=== PATIENT | female | born 1975 | race Caucasian/White ===

== ENCOUNTER 2018-07-08 10:13 | Inpatient (IN) | payer BC ==
[~2018-07-08] VITALS: Ht 157.5 cm; Wt 52.3 kg
[2018-07-08] MEDS ORDERED: METHYLPREDNISOLONE SOD SUCC 125 MG/2ML VIAL IV ONE ×2 (10:45→11:00)
[2018-07-08] MEDS ORDERED: ALBUTEROL/IPRATROPIUM 3 ML NEB NEB ONE (10:45)
[2018-07-08] MEDS ORDERED: DEXAMETHASONE SOD PHOS 10 MG/1 ML VIAL ONE (10:53)
[2018-07-08] MEDS ORDERED: MAGNESIUM SULFATE 2GM/50ML 50 ML IV ONE (11:00)
[2018-07-08] MEDS: ALBUTEROL/IPRATROPIUM 3 ML NEB NEB SCH ×4 (11:00→22:45)
[2018-07-08] MEDS ORDERED: DEXAMETHASONE SOD PHOS 10 MG/1 ML VIAL IV ONE (11:00)
--- NOTE | 2018-07-08 11:00 | NUR ---
RT to bedside initiating Bipap at this time. Pt states she has had to use bipap before & tolerates well. Educated regarding plan of care. Understanding verbalized. Will continue to monitor.
[2018-07-08 11:27] LABS: BASOPHILS % 0.2 % (0.0-1.0); EOSINOPHILS % 0.3 % (0.0-6.0); HEMATOCRIT 45.6 % (34.2-44.1); HEMOGLOBIN 15.6 g/dL (12.0-16.0); LYMPHOCYTES # (AUTO) 0.9 (1.0-3.2); LYMPHOCYTES % 7.3 % (18.0-39.1); MEAN CORPUSCULAR HEMOGLOBIN 31.1 pg (28-32); MEAN CORPUSCULAR HGB CONC 34.2 g/dL (31-35); MEAN CORPUSCULAR VOLUME 90.8 fL (81-99); MONOCYTES # (AUTO) 1.1 (0.2-0.8); MONOCYTES % 8.9 % (4.4-11.3); NEUTROPHILS # (AUTO) 10.1 (2.1-6.9); PLATELET COUNT 278 x10e3/uL (140-360); RED BLOOD COUNT 5.02 x10e6/uL (3.6-5.1); RED CELL DISTRIBUTION WIDTH 11.9 % (11.7-14.4)
[2018-07-08 11:50] LABS: ALANINE AMINOTRANSFERASE 10 IU/L (0-55); ALBUMIN 3.5 g/dL (3.5-5.0); ALBUMIN/GLOBULIN RATIO 0.9 (0.8-2.0); ALKALINE PHOSPHATASE 66 IU/L (40-150); ANION GAP 13.6 mmol/L (8-16); BLOOD UREA NITROGEN 6 mg/dL (7-26); BUN/CREATININE RATIO 9 (6-25); CALCIUM 9.5 mg/dL (8.4-10.2); CARBON DIOXIDE 24 mmol/L (22-29); CHLORIDE 101 mmol/L (98-107); CREATININE, SERUM 0.64 mg/dL (0.57-1.11); EST GLOMERULAR FILTRATION RATE > 60 ML/MIN (60-); GLUCOSE 77 mg/dL (74-118); MAGNESIUM 2.6 MG/DL (1.3-2.1); POTASSIUM 3.6 mmol/L (3.5-5.1); SODIUM 135 mmol/L (136-145)
--- NOTE | 2018-07-08 12:00 | NUR ---
Bipap remains in place, tolerating well. Will continue to monitor.
--- NOTE | 2018-07-08 13:15 | NUR ---
BIPAP REMOVED AT THIS TIME, PLACED ON 2L N/C AT THIS TIME, TOLERATING WELL BREATHING EVEN/UNLABORED.
--- NOTE | 2018-07-08 13:55 | Diagnostic Imaging Report ---
EXAM: CHEST SINGLE (PORTABLE), AP Portable DATE: 07/08/2018 Time stamp on exam: 11:49 AM INDICATION: Asthma, cough with shortness of breath COMPARISON: None FINDINGS: LINES/TUBES: None LUNGS: No consolidations or edema. Bibasilar opacities likely is secondary to atelectasis. PLEURA: No effusions or pneumothorax. HEART AND MEDIASTINUM: Normal size and contour. BONES AND SOFT TISSUES: No acute findings. IMPRESSION: Bibasilar opacities. Signed by: Dr. Delmer Durand DO on 07/08/2018 1:52 PM
[2018-07-08] MEDS: METHYLPREDNISOLONE SOD SUCC 40 MG/ML VIAL 1ML IV SCH (18:00)
[2018-07-08 23:45] VITALS: BP 121/80
--- NOTE | 2018-07-08 23:45 | NUR ---
pt received from er via bed. no ss of distress noted upon admission. pt made comfortable and oriented to rm. tele placed on pt per orders. 02 nc noted. no co pain at time. hx obtained. will cont to follow poc. call jean baptiste within reach.
[2018-07-09] VITALS (10 sets, daily range): BP systolic 114–131; BP diastolic 66–80
[2018-07-09] MEDS ORDERED: LEVAQUIN500 MG PO (00:52)
[2018-07-09] MEDS ORDERED: XOPENEX1.25 MG/3 NEB (00:52)
[2018-07-09] MEDS ORDERED: ACETYLCYST200 MG/1 M NEB (00:52)
[2018-07-09] MEDS ORDERED: SINGULAIR10 MG PO (00:52)
[2018-07-09] MEDS ORDERED: PREDNISONE20 MG PO (00:52)
[2018-07-09] MEDS ORDERED: flonase INH (00:52)
[2018-07-09] MEDS ORDERED: SPIRIVA18 MCG INH (00:52)
[2018-07-09] MEDS: ALBUTEROL/IPRATROPIUM 3 ML NEB NEB SCH ×6 (03:55→23:30)
--- NOTE | 2018-07-09 04:08 | NUR ---
pt resting. no ss of distress noted. call jean baptiste within reach.
[2018-07-09] MEDS ORDERED: ADVAIR 250-501 EACH INH (04:22)
[2018-07-09] MEDS ORDERED: CEFEPIME 1GM/NS 0.9% 50 ML 50 ML IV ONE (05:10)
[2018-07-09 05:14] LABS: BASOPHILS % 0.1 % (0.0-1.0); HEMATOCRIT 40.8 % (34.2-44.1); HEMOGLOBIN 13.9 g/dL (12.0-16.0); LYMPHOCYTES # (AUTO) 0.4 (1.0-3.2); LYMPHOCYTES % 4.1 % (18.0-39.1); MEAN CORPUSCULAR HEMOGLOBIN 30.6 pg (28-32); MEAN CORPUSCULAR HGB CONC 34.1 g/dL (31-35); MEAN CORPUSCULAR VOLUME 89.9 fL (81-99); MONOCYTES # (AUTO) 0.3 (0.2-0.8); MONOCYTES % 2.9 % (4.4-11.3); NEUTROPHILS # (AUTO) 8.8 (2.1-6.9); NEUTROPHILS % 92.5 % (38.7-80.0); PLATELET COUNT 323 x10e3/uL (140-360); RED BLOOD COUNT 4.54 x10e6/uL (3.6-5.1)
[2018-07-09] MEDS: METHYLPREDNISOLONE SOD SUCC 40 MG/ML VIAL 1ML IV SCH ×5 (05:21→23:42)
[2018-07-09 05:39] LABS: ANION GAP 15.2 mmol/L (8-16); BLOOD UREA NITROGEN 12 mg/dL (7-26); BUN/CREATININE RATIO 19 (6-25); CARBON DIOXIDE 22 mmol/L (22-29); CHLORIDE 104 mmol/L (98-107); CREATININE, SERUM 0.63 mg/dL (0.57-1.11); EST GLOMERULAR FILTRATION RATE > 60 ML/MIN (60-); GLUCOSE 175 mg/dL (74-118); MAGNESIUM 2.6 MG/DL (1.3-2.1); POTASSIUM 3.2 mmol/L (3.5-5.1); SODIUM 138 mmol/L (136-145)
[2018-07-09] MEDS ORDERED: CEFEPIME HCL 1 GM VIAL IV SCH (06:00)
--- NOTE | 2018-07-09 06:19 | NUR ---
spoke to dr nicholson in regards to new consult. no new orders at time. will notify oncoming nurse.
[2018-07-09] MEDS ORDERED: POTASSIUM CHLORIDE 20 MEQ TAB CR PO STA (07:32)
--- NOTE | 2018-07-09 07:36 | NUR ---
pt resting in bed, no c/o pain or s/s distress. MD notified of labs. will continue to monitor.
[2018-07-09] MEDS: MONTELUKAST SODIUM 10 MG TAB PO SCH (08:06)
[2018-07-09 08:16] LABS: LYMPHOCYTES % (MANUAL) 4 % (19-48); MONOCYTES % (MANUAL) 1 % (3.4-9.0); NEUTROPHILS % (MANUAL) 95 % (40-74)
[2018-07-09] MEDS ORDERED: ACETYLCYSTEINE 20% INHAL SOLN 30 ML VIAL INH SCH (09:00)
[2018-07-09] MEDS: AZITHROMYCIN 250 MG TAB PO SCH (09:26)
[2018-07-09] MEDS: TIOTROPIUM 18 MCG INH POWDER INH SCH (11:03)
[2018-07-09] MEDS: SALMETEROL/FLUTICASONE 250/50 INH SCH ×2 (11:03→20:05)
[2018-07-09] MEDS: CEFEPIME 1GM/NS 0.9% 50 ML 50 ML IV SCH ×2 (14:23→21:32)
--- NOTE | 2018-07-09 14:34 | NUR ---
EDUCATED ABOUT IMM, SIGNED, FILED IN CHART, WITH COPY LEFT WITH FAMILY AT BEDSIDE.
--- NOTE | 2018-07-09 17:12 | NUR ---
CASE MANAGEMENT INITIAL ASSESSMENT Primary Care Provider to bedside to discuss plan of care with patient/family. CM/SW role and care transitions discussed. Anticipated discharge plan discussed along with duration of care. CM/SW discussed patients right to make decisions in care. CM/SW work hours given. Patient lives: WITH Admit/Transfer: ER Hospital/ER visits since last admit:0 POA/Emergency contact: DINO BARKER [phone] Current/Previous Home Health: NONE PCP/Follow-up Care: DR MATI ROSEN Current/Previous DME: BIPAP, CPT VEST Medications (referring to index hospitalization or the first time you were in the hospital) a. Were changes made in your medications when you were in the hospital on [date of index hospitalization]? N/A Note: If no or not sure, please skip to question d b. Did you understand the changes? Yes No Explain: c. Were you able to obtain your new medications right away? Yes No n/a SNF only Explain: d. Were you able to take your medications like the doctor wanted you to? TAKING ASTHMA MEDS PRESCRIBED BY PCP e. Did the hospital give you an accurate, easy to understand list of medications when you left? Scale of 1-10 how comfortable does patient feel with disease management in outpatient settin Other Services: NONE Employment Status: WORKS [employer]AN[employer] Areas of Concerns: ASTHMA MGMT AT HOME Referral Needs: TO BE DETERMINED Education Needs: TO BE DETERMINED IMM/TIWARI given and signed (if applicable): N/A Goal for discharge:TO GO HOME, GO BACK TO WORK AND BE ABLE TO MANAGE MY ASTHMA CM/SW left business card at the bedside with contact information. Name and number was also written on the patients whiteboard. Patient verbalized understanding of discussion. CM will follow-up with ongoing discharge and transition of care needs.
--- NOTE | 2018-07-09 18:30 | Consultation ---
DATE OF CONSULTATION: 07/09/2018 Pulmonary Consultation HISTORY OF PRESENT ILLNESS: The patient was last seen for over 10 years ago. History of lifelong childhood asthma, history of IgA deficiency. Out of hospital for last five years. Current illness started with hoarseness and then progressive wheezing, cough productive of thick tenacious sputum. ALLERGIES: NO KNOWN ALLERGIES. MEDICATIONS: Include Singulair, Advair, Mucomyst nebulized, prednisone for emergencies 40 mg, Levaquin over the last two days, Nasacort, and Xopenex. She also uses a vest. PAST SURGICAL HISTORY: She has had lumpectomy. No other operations. SOCIAL HISTORY: She works for an manufacturing production technician. Nonsmoker. No alcohol use. FAMILY HISTORY: Noncontributory. PHYSICAL EXAMINATION: GENERAL: Frail white female, in no acute distress, looking her stated age. VITAL SIGNS: Temperature 98.7, pulse 86, respirations 20, blood pressure 120/75. HEAD: Normocephalic, atraumatic. EYES: Extraocular movements are intact. LUNGS: Wheezing in all lung murphy. HEART: Regular rhythm. ABDOMEN: Nontender. EXTREMITIES: Nonedematous. DIAGNOSTIC STUDIES: Chest x-ray reveals hyperinflated lung murphy, vague lower lobe infiltrate. ASSESSMENT AND PLAN: She is currently on cefepime. We will cover for atypical infections. Continue chest physiotherapy. Check IgE levels. There is no evidence of eosinophils. Taper steroids as tolerated. Thank you for this kind referral. MD COLLEEN Alberto/ALLA /[id number]
--- NOTE | 2018-07-09 19:50 | NUR ---
Patient resting on her bed with continuing on 2lters oxygen via nasal canula.No C/O pain..Respiration even and unlabored. at the bedside. Bed in lower position,locked. Call jean baptiste within reach. Will continue to monitor.
[2018-07-09] MEDS: HEPARIN SOD (PORCINE) 5,000 UNIT/ML VIAL SC SCH (20:47)
[2018-07-10] VITALS (7 sets, daily range): BP systolic 97–127; BP diastolic 64–82
[2018-07-10] MEDS: ALBUTEROL/IPRATROPIUM 3 ML NEB NEB SCH ×6 (03:00→23:55)
[2018-07-10] MEDS: CEFEPIME 1GM/NS 0.9% 50 ML 50 ML IV SCH ×3 (05:22→21:47)
[2018-07-10] MEDS: METHYLPREDNISOLONE SOD SUCC 40 MG/ML VIAL 1ML IV SCH ×3 (05:22→17:59)
--- NOTE | 2018-07-10 07:03 | NUR ---
Report given to oncoming nurse,walking round done.
--- NOTE | 2018-07-10 07:16 | NUR ---
pt resting in bed, returned from CT. no c/o pain or s/s distress. will continue to monitor.
[2018-07-10] MEDS: SALMETEROL/FLUTICASONE 250/50 INH SCH ×2 (07:35→18:45)
[2018-07-10] MEDS: TIOTROPIUM 18 MCG INH POWDER INH SCH (07:35)
--- NOTE | 2018-07-10 07:44 | Diagnostic Imaging Report ---
CT CHEST HI-RES History: Asthma, cough for 2 weeks ^HRCT ^[id number] ^[id number] Technique: Axial noncontrast images of the lungs are obtained from the apices to the bases in both suspended inspiration and expiration by using 1.25 mm collimation and 10 mm intervals Additional prone inspiration images were obtained. A sharp-edge reconstruction algorithm was used and the images reviewed with lung windows. No intravenous contrast was administered. RADIATION DOSE: Total DLP: 530.03 mGy*cm Estimated effective dose: (DLP x 0.015 x size factor) mSv CTDIvol has been reviewed. It is below the limits set by the Radiation Protocol Committee (RPC). Comparison: Chest x-ray 07/08/2018. LINES/ TUBES: None. Thyroid/base of neck: Normal in size without mass in the visualized parenchyma. Lymph nodes: No mediastinal, hilar or axillary lymphadenopathy. LUNGS AND AIRWAYS: Right lung: Patchy groundglass opacities in the all lobes, predominantly the lower lobe. No evidence of honeycombing or subpleural bands. No evidence of centrilobular or perilymphatic nodules. No interlobular septal thickening. No evidence of air trapping. Calcified nodule in the lateral lower lobe measures 2 mm. Left lung: Patchy groundglass opacities in the medial lingula and lower lobe. No honeycombing or subpleural bands. No evidence of centrilobular perilymphatic nodules. No evidence of air trapping. No interlobular septal thickening. Airways: No bronchiectasis or significant bronchial wall thickening. No intraluminal filling defects. PLEURA: Mild biapical pleural-parenchymal thickening. No pleural effusion or pleural based mass. HEART AND MEDIASTINUM: The heart is normal in size. There is no pericardial effusion. The thoracic aorta and pulmonary arteries are unremarkable. The esophagus is collapsed. UPPER ABDOMEN: Unremarkable. BONES: The visualized bony thorax is within normal limits. SOFT TISSUES: Unremarkable. IMPRESSION: 1. Multifocal groundglass opacities in each lung, lower lobe predominant, suggestive of an infectious/inflammatory process, including hypersensitivity pneumonia. Recommend follow-up with conventional CT in 3-4 months to document interval change/resolution. 2. No findings to suggest interstitial lung disease. 3. No lymphadenopathy on this unenhanced examination. Signed by: Dr. Idalmis Ordoñez MD on 07/10/2018 7:40 AM
[2018-07-10] MEDS: AZITHROMYCIN 250 MG TAB PO SCH (08:59)
[2018-07-10] MEDS: HEPARIN SOD (PORCINE) 5,000 UNIT/ML VIAL SC SCH ×2 (08:59→21:10)
[2018-07-10] MEDS: MONTELUKAST SODIUM 10 MG TAB PO SCH (08:59)
--- NOTE | 2018-07-10 11:04 | Progress Note ---
DATE: 07/10/2018 SUBJECTIVE: The patient is here for asthma exacerbation. The patient is currently on Mucomyst, albuterol and Atrovent treatments, azithromycin, and Solu-Medrol. The patient is currently feeling somewhat better. The patient has been ambulating with tachycardia and has also no orthopnea, no PND. Positive for wheezing and also positive for loss of voice. OBJECTIVE: VITAL SIGNS: Temperature is afebrile at 98.4, T-max 98.4, pulse of 83, respiration of 19, blood pressure is 108/74, and pulse oximetry of 99%. She is on 2 L of oxygen, has been on BiPAP and is scheduled for a CT scan today. CVS: S1, S2, tachycardic. ABDOMEN: Nontender, nondistended. LUNGS: Positive for bilateral wheezes. EXTREMITIES: No clubbing, no cyanosis, and no edema. LABORATORY VALUES: From 07/09/2018 shows white count of 9.5, slight left shift. Chemistry shows sodium of 138, potassium of 3.2, glucose was 175 with magnesium of 2.6. The patient's IgE panel is pending at this time. Microbiology, Gram stain is negative for sputum culture. ASSESSMENT: 1. Acute exacerbation of asthma with history of IgA deficiency. Plan is to continue with antibiotics for atypical coverage. Chest physiotherapy has been done. She is on Solu-Medrol, which has to be tapered. 2. Leukocytosis. This has resolved. 3. The patient is tachycardic. We will keep monitoring her in the telemetry unit. Plan is to continue all current medication and also Dr. Richardson is on consult at this time. DISPOSITION: Continue to monitor the patient. The patient has very slow progress. MD LEONOR Hector/ERMAL /[id number]
[2018-07-10] MEDS: ACETYLCYSTEINE 200 MG/ML 4ML VIAL INH SCH ×3 (14:40→23:55)
[2018-07-11] VITALS (8 sets, daily range): BP systolic 108–140; BP diastolic 61–86
[2018-07-11] MEDS: METHYLPREDNISOLONE SOD SUCC 40 MG/ML VIAL 1ML IV SCH ×3 (00:07→16:32)
[2018-07-11] MEDS: ALBUTEROL/IPRATROPIUM 3 ML NEB NEB SCH ×6 (03:05→23:30)
[2018-07-11] MEDS: CEFEPIME 1GM/NS 0.9% 50 ML 50 ML IV SCH ×3 (05:40→21:28)
--- NOTE | 2018-07-11 07:12 | NUR ---
Report given to oncoming nurse,walking round done.
[2018-07-11] MEDS: ACETYLCYSTEINE 200 MG/ML 4ML VIAL INH SCH ×3 (08:10→19:30)
[2018-07-11] MEDS: SALMETEROL/FLUTICASONE 250/50 INH SCH ×2 (08:20→19:30)
[2018-07-11] MEDS: TIOTROPIUM 18 MCG INH POWDER INH SCH (08:20)
[2018-07-11] MEDS: MONTELUKAST SODIUM 10 MG TAB PO SCH (09:17)
[2018-07-11] MEDS: AZITHROMYCIN 250 MG TAB PO SCH (09:17)
[2018-07-11] MEDS: HEPARIN SOD (PORCINE) 5,000 UNIT/ML VIAL SC SCH ×2 (09:24→20:38)
[2018-07-11] MEDS ORDERED: METHYLPREDNISOLONE SOD SUCC 40 MG/ML VIAL 1ML IV SCH (14:00)
[2018-07-11] MEDS ORDERED: POTASSIUM CHLORIDE 20 MEQ TAB CR PO NR ×2 (18:45→20:00)
--- NOTE | 2018-07-11 19:05 | NUR ---
Report received from AM RN Audrey.Patient resting on her bed. Denied pain and SOB/labored noted.Spo2 maintained 100% with 2liters oxygen via nasal canula.patient friend at the bedside. Called RT for her breathing treatment. Will continue to monitor.
[2018-07-11] MEDS ORDERED: SODIUM CHLORIDE 0.9% 250ML 250 ML ONE (20:44)
[2018-07-12] VITALS (8 sets, daily range): BP systolic 121–149; BP diastolic 70–91
[2018-07-12] MEDS: ACETYLCYSTEINE 200 MG/ML 4ML VIAL INH SCH ×4 (01:00→19:40)
[2018-07-12] MEDS: ALBUTEROL/IPRATROPIUM 3 ML NEB NEB SCH ×6 (03:15→23:05)
[2018-07-12] MEDS: CEFEPIME 1GM/NS 0.9% 50 ML 50 ML IV SCH ×3 (05:24→21:22)
--- NOTE | 2018-07-12 07:07 | NUR ---
Report given to oncoming nurse,walking round done.
[2018-07-12] MEDS: SALMETEROL/FLUTICASONE 250/50 INH SCH ×2 (08:29→19:40)
[2018-07-12] MEDS: TIOTROPIUM 18 MCG INH POWDER INH SCH (08:29)
[2018-07-12] MEDS: AZITHROMYCIN 250 MG TAB PO SCH (09:18)
[2018-07-12] MEDS: METHYLPREDNISOLONE SOD SUCC 40 MG/ML VIAL 1ML IV SCH ×2 (09:18→16:27)
[2018-07-12] MEDS: MONTELUKAST SODIUM 10 MG TAB PO SCH (09:18)
[2018-07-12] MEDS: HEPARIN SOD (PORCINE) 5,000 UNIT/ML VIAL SC SCH ×2 (09:32→21:11)
[2018-07-12] MEDS ORDERED: SODIUM CHLORIDE 0.9% 250ML 250 ML ONE (09:59)
[2018-07-13] VITALS (8 sets, daily range): BP systolic 106–164; BP diastolic 49–95
[2018-07-13] MEDS: ALBUTEROL/IPRATROPIUM 3 ML NEB NEB SCH ×6 (02:00→23:00)
[2018-07-13] MEDS: ACETYLCYSTEINE 200 MG/ML 4ML VIAL INH SCH ×4 (02:00→19:45)
[2018-07-13] MEDS: CEFEPIME 1GM/NS 0.9% 50 ML 50 ML IV SCH ×3 (05:34→21:54)
[2018-07-13] MEDS: TIOTROPIUM 18 MCG INH POWDER INH SCH (08:10)
[2018-07-13] MEDS: SALMETEROL/FLUTICASONE 250/50 INH SCH ×2 (08:10→19:45)
[2018-07-13] MEDS: METHYLPREDNISOLONE SOD SUCC 40 MG/ML VIAL 1ML IV SCH ×2 (09:32→17:41)
[2018-07-13] MEDS: AZITHROMYCIN 250 MG TAB PO SCH (09:32)
[2018-07-13] MEDS: MONTELUKAST SODIUM 10 MG TAB PO SCH (09:32)
[2018-07-13] MEDS: HEPARIN SOD (PORCINE) 5,000 UNIT/ML VIAL SC SCH ×2 (09:33→21:47)
--- NOTE | 2018-07-13 11:48 | NUR ---
ATTEMPTED PFT BEDSIDE BUT PT COULD NOT JOAO FULL TEST
--- NOTE | 2018-07-13 12:57 | Diagnostic Imaging Report ---
EXAMINATION: CHEST SINGLE (PORTABLE) INDICATION: Shortness of breath. COMPARISON: CT chest 07/10/2018 and chest radiograph 07/08/2018. FINDINGS: TUBES and LINES: None. LUNGS: Mild patchy bibasilar opacities. No new consolidation. No evidence of pulmonary edema. PLEURA: No pleural effusion or pneumothorax. HEART AND MEDIASTINUM: The cardiomediastinal silhouette is unremarkable. BONES AND SOFT TISSUES: No acute osseous lesion. Soft tissues are unremarkable. UPPER ABDOMEN: No free air under the diaphragm. IMPRESSION: Mild patchy bibasilar opacities, better characterized as infectious/inflammatory process on CT chest from 07/10/2018. No new consolidation. No evidence of pulmonary edema. Signed by: Dr. Fanta Howard MD on 07/13/2018 12:53 PM
[2018-07-14] VITALS (8 sets, daily range): BP systolic 112–151; BP diastolic 83–95
--- NOTE | 2018-07-14 00:08 | Pulmonary Function Test ---
DATE OF STUDY: 07/13/2018 REFERRING PHYSICIAN: NAME OF STUDY: Spirometry. FINDINGS: The patient's study was questionable because of severe dyspnea, only one maneuver was performed. However, the forced vital capacity was 1.16, 33% of predicted. FEV1 1.09 L, 38%. FEV1/FVC ratio 94%. [id number] of 55%. Peak expiratory flow 243. Severe restrictive pattern in the patient with known asthma. MD COLLEEN Alberto/MODL /[id number]
[2018-07-14] MEDS: ACETYLCYSTEINE 200 MG/ML 4ML VIAL INH SCH ×4 (02:09→19:30)
[2018-07-14] MEDS: ALBUTEROL/IPRATROPIUM 3 ML NEB NEB SCH ×6 (02:09→23:30)
[2018-07-14] MEDS: CEFEPIME 1GM/NS 0.9% 50 ML 50 ML IV SCH ×3 (05:38→21:49)
[2018-07-14] MEDS ORDERED: FUROSEMIDE INJ 10 MG/ML 2 ML VIAL IV ONE (06:00)
--- NOTE | 2018-07-14 07:15 | NUR ---
RN performed comprehensive assessment on patient. Patient is on BiPAP and will continue to monitor or airway/breathing status. Alert/oriented x3 with the vital signs WNL. The patient reported no pain.
[2018-07-14] MEDS: TIOTROPIUM 18 MCG INH POWDER INH SCH (07:25)
[2018-07-14] MEDS: SALMETEROL/FLUTICASONE 250/50 INH SCH ×2 (07:25→19:30)
[2018-07-14 07:58] LABS: BASOPHILS # (AUTO) 0.1 (0.0-0.1); BASOPHILS % 0.6 % (0.0-1.0); HEMOGLOBIN 16.7 g/dL (12.0-16.0); LYMPHOCYTES # (AUTO) 2.1 (1.0-3.2); LYMPHOCYTES % 13.7 % (18.0-39.1); MEAN CORPUSCULAR HEMOGLOBIN 30.7 pg (28-32); MEAN CORPUSCULAR HGB CONC 34.1 g/dL (31-35); MEAN CORPUSCULAR VOLUME 90.1 fL (81-99); MONOCYTES # (AUTO) 1.2 (0.2-0.8); MONOCYTES % 7.7 % (4.4-11.3); NEUTROPHILS # (AUTO) 11.1 (2.1-6.9); NEUTROPHILS % 73.9 % (38.7-80.0); PLATELET COUNT 434 x10e3/uL (140-360); RED BLOOD COUNT 5.44 x10e6/uL (3.6-5.1); RED CELL DISTRIBUTION WIDTH 12.4 % (11.7-14.4)
[2018-07-14 08:42] LABS: ANION GAP 14.5 mmol/L (8-16); BLOOD UREA NITROGEN 17 mg/dL (7-26); BUN/CREATININE RATIO 24 (6-25); CALCIUM 9.3 mg/dL (8.4-10.2); CARBON DIOXIDE 25 mmol/L (22-29); CHLORIDE 100 mmol/L (98-107); EST GLOMERULAR FILTRATION RATE > 60 ML/MIN (60-); GLUCOSE 79 mg/dL (74-118); POTASSIUM 4.5 mmol/L (3.5-5.1); SODIUM 135 mmol/L (136-145)
[2018-07-14] MEDS: AZITHROMYCIN 250 MG TAB PO SCH (08:52)
[2018-07-14] MEDS: METHYLPREDNISOLONE SOD SUCC 40 MG/ML VIAL 1ML IV SCH ×2 (08:52→16:29)
[2018-07-14] MEDS: MONTELUKAST SODIUM 10 MG TAB PO SCH (08:52)
[2018-07-14] MEDS: HEPARIN SOD (PORCINE) 5,000 UNIT/ML VIAL SC SCH ×2 (08:54→21:54)
--- NOTE | 2018-07-14 10:42 | NUR ---
EDUCATED ABOUT IMM, SIGNED, FILED IN CHART, WITH COPY LEFT WITH FAMILY AT BEDSIDE.
[2018-07-14 10:52] LABS: LYMPHOCYTES % (MANUAL) 21 % (19-48); MONOCYTES % (MANUAL) 7 % (3.4-9.0); MYELOCYTES % (MANUAL) 1 % (0-0); NEUTROPHILS % (MANUAL) 71 % (40-74)
[2018-07-14 10:53] LABS: ANISOCYTOSIS SLIGHT; PLATELET ESTIMATE ADEQUATE; PLATELET MORPHOLOGY COMMENT NORMAL; RBC MORPHOLOGY COMMENT NORMAL
--- NOTE | 2018-07-14 18:30 | NUR ---
Nutrition Intervention Note RD Recommendation(s) for Physician: -Continue cardiac diet as ordered -Rec Ensure Clear BID to increase protein-calorie intake Plan of Care: RD following, monitoring for tolerance and adequacy, ONS rec Nutrition reason for involvement: LOS RD Assessment 07/14 Chart reviewed. 43yo F, who was admitted for asthma. Visited pt in the room. Pt reported fair appetite with ~25% of meal intake. Pt stated I am not a big eater when I am short of breathe. Family has been bringing foods from home. No GI complains noted. Pt denied any chewing or swallowing difficulty. No recent weight loss reported with UBW ~100-110lb. RD rec ONS to increase protein-calorie intake; pt was willing to try. Will continue to monitor and follow. Principal Problems/Diagnoses: Acute exacerbation of asthma with history of IgA deficiency PMH: lifelong childhood asthma, IgA deficiency GI: abdomen flat, LBM 07/13 Skin: no pressure wound noted Labs: (07/14) Na 135 L Meds: Solu-medrol, abx, heparin Ht: 62in Wt: 112.04lb BMI: 20.5kg/m2 IBW: 110lb Malnutrition Evaluation (07/14) The patient does not meet criteria for a specified degree of malnutrition at this time. Will re-evaluate at follow-up as appropriate. Nutrition Prescription (Diet Order): cardiac diet Estimated Nutritional Needs: Calories: 1257 1530kcal(25-30kcal/kg/d) Weight used: current BW Protein: 51 77g (1-1.5g/kg/d) Weight used: current BW Diet Adequacy: Not meeting calorie needs, Not meeting protein needs Diet Education Needs Assessment: Diet education not indicated; patient on regular diet. Nutrition Care Level: low Nutrition Diagnosis: Inadequate oral intake related to SOB as evidenced by pt only ate ~25% of her meals. Goal: Patient will meet 75-100% of estimated needs by follow up Progress: N/A Interventions: Mineral-modified diet, Commercial beverage Monitoring/Evaluation: Total energy intake, Total protein intake, Modified diet, Liquid supplement, Weight change Signed: Beth Bowers MS, RD, LD
--- NOTE | 2018-07-14 19:06 | NUR ---
ROUNDS DONE, PATIENT RESTING IN BED, FAMILY/FRIEND AT THE BEDSIDE, 02 PER NC REMAIN INTACT, WILL CONTINUE TO MONITOR. CALL LIGHT IN REACH.
--- NOTE | 2018-07-14 19:19 | NUR ---
FAMILY BROUGHT HER SOME OUTSIDE FOOD AND PATIENT IS EATING WITHOUT ANY PROBLEMS.
--- NOTE | 2018-07-14 23:18 | NUR ---
PATIENT RESTING IN BED, AT THE BEDSIDE, REMAIN ON O2, NO COMPLAINTS OF PAIN, CALL LIGHT REMAIN IN REACH. WILL CONTINUE TO MONITOR.
[2018-07-15] VITALS (7 sets, daily range): BP systolic 125–148; BP diastolic 80–97
[2018-07-15] MEDS: ACETYLCYSTEINE 200 MG/ML 4ML VIAL INH SCH ×4 (02:30→20:15)
[2018-07-15] MEDS: ALBUTEROL/IPRATROPIUM 3 ML NEB NEB SCH ×6 (02:30→23:50)
[2018-07-15] MEDS: CEFEPIME 1GM/NS 0.9% 50 ML 50 ML IV SCH ×3 (05:47→21:31)
[2018-07-15] MEDS ORDERED: PANTOPRAZOLE SOD 40 MG TABEC PO SCH (07:30)
[2018-07-15] MEDS: METHYLPREDNISOLONE SOD SUCC 40 MG/ML VIAL 1ML IV SCH ×2 (09:09→17:44)
[2018-07-15] MEDS: AZITHROMYCIN 250 MG TAB PO SCH (09:16)
[2018-07-15] MEDS: MONTELUKAST SODIUM 10 MG TAB PO SCH (09:16)
[2018-07-15] MEDS: HEPARIN SOD (PORCINE) 5,000 UNIT/ML VIAL SC SCH ×2 (09:20→21:31)
[2018-07-15] MEDS: SALMETEROL/FLUTICASONE 250/50 INH SCH ×2 (11:32→20:15)
[2018-07-15] MEDS: TIOTROPIUM 18 MCG INH POWDER INH SCH (11:32)
--- NOTE | 2018-07-15 15:33 | NUR ---
SPOKE WITH DR MENDOSA AND DR ROSEN PT IS MAXED OUT ON TREATMENT FOR ASTHMA PER DR MENDOSA AND IS MAKING MINIMAL IMPROVEMENT PT AMBULATED IN ROOM TODAY AND BECAME VERY SHORT OF BREATH REQUIRING BIPAP ORDERS FOR LTAC PT CURRENTLY ON BIPAP WITH FAMILY AT BEDSIDE WILL DISCUSS LTAC WITH PT WHEN HER BREATHING IMPROVES
[2018-07-16] VITALS (8 sets, daily range): BP systolic 108–163; BP diastolic 66–93
[2018-07-16] MEDS: ALBUTEROL/IPRATROPIUM 3 ML NEB NEB SCH ×6 (03:30→23:07)
[2018-07-16] MEDS: ACETYLCYSTEINE 200 MG/ML 4ML VIAL INH SCH ×4 (03:30→19:19)
[2018-07-16] MEDS: CEFEPIME 1GM/NS 0.9% 50 ML 50 ML IV SCH ×3 (06:01→22:00)
[2018-07-16 06:43] LABS: BASOPHILS # (AUTO) 0.1 (0.0-0.1); BASOPHILS % 0.4 % (0.0-1.0); HEMATOCRIT 41.8 % (34.2-44.1); HEMOGLOBIN 13.9 g/dL (12.0-16.0); LYMPHOCYTES % 9.5 % (18.0-39.1); MEAN CORPUSCULAR HEMOGLOBIN 30.4 pg (28-32); MEAN CORPUSCULAR HGB CONC 33.3 g/dL (31-35); MEAN CORPUSCULAR VOLUME 91.5 fL (81-99); MONOCYTES # (AUTO) 1.2 (0.2-0.8); MONOCYTES % 5.7 % (4.4-11.3); NEUTROPHILS % 81.3 % (38.7-80.0); PLATELET COUNT 375 x10e3/uL (140-360); RED BLOOD COUNT 4.57 x10e6/uL (3.6-5.1); RED CELL DISTRIBUTION WIDTH 12.5 % (11.7-14.4)
[2018-07-16 06:53] LABS: ANION GAP 12.9 mmol/L (8-16); BLOOD UREA NITROGEN 21 mg/dL (7-26); BUN/CREATININE RATIO 33 (6-25); CALCIUM 8.3 mg/dL (8.4-10.2); CARBON DIOXIDE 21 mmol/L (22-29); CHLORIDE 109 mmol/L (98-107); CREATININE, SERUM 0.64 mg/dL (0.57-1.11); EST GLOMERULAR FILTRATION RATE > 60 ML/MIN (60-); GLUCOSE 104 mg/dL (74-118); MAGNESIUM 2.1 MG/DL (1.3-2.1); POTASSIUM 3.9 mmol/L (3.5-5.1); SODIUM 139 mmol/L (136-145)
[2018-07-16 07:14] LABS: LYMPHOCYTES % (MANUAL) 11 % (19-48); METAMYELOCYTES % (MANUAL) 3 % (0-0); MONOCYTES % (MANUAL) 4 % (3.4-9.0); NEUTROPHILS % (MANUAL) 75 % (40-74); RBC MORPHOLOGY COMMENT NORMAL
[2018-07-16 07:15] LABS: ANISOCYTOSIS SLIG; PLATELET MORPHOLOGY COMMENT NORMAL
[2018-07-16] MEDS: SALMETEROL/FLUTICASONE 250/50 INH SCH ×2 (08:30→19:19)
[2018-07-16] MEDS: TIOTROPIUM 18 MCG INH POWDER INH SCH (08:30)
[2018-07-16] MEDS: MONTELUKAST SODIUM 10 MG TAB PO SCH (09:45)
[2018-07-16] MEDS: METHYLPREDNISOLONE SOD SUCC 40 MG/ML VIAL 1ML IV SCH ×3 (09:45→20:55)
[2018-07-16] MEDS: AZITHROMYCIN 250 MG TAB PO SCH (09:45)
[2018-07-16] MEDS: HEPARIN SOD (PORCINE) 5,000 UNIT/ML VIAL SC SCH (09:45)
[2018-07-16] MEDS ORDERED: ALPRAZOLAM 0.25 MG TAB PO PRN (11:00)
[2018-07-16] MEDS: DULOXETINE HCL 30 MG DELAYED RELEASE PO SCH (11:23)
--- NOTE | 2018-07-16 13:39 | NUR ---
DISCUSSED LTAC EVAL WITH PT SHE IS AGREEABLE BUT VERY TEARFUL CHOICE LETTER SIGNED FOR [facility]AN [facility] INITIATED AND PLACED IN [place] AT [facility] WITH [facility] NOTIFIED OF CONSULT PLAN TRANSFER WHEN APPROVED BY INSURANCE
--- NOTE | 2018-07-16 19:21 | NUR ---
Received change of shift report from AM nurse. Rounds completed.
--- NOTE | 2018-07-16 23:43 | NUR ---
Patient in bed. AAOx3 with family at bedside. Patient denies pain at this time. Patient on 5L n/c with good o2 sat. IV to right F/A dry, intact and patent. Patient tacy with activity. Continue monitor.
[2018-07-17] VITALS: BP 150/88
[2018-07-17] MEDS: ACETYLCYSTEINE 200 MG/ML 4ML VIAL INH SCH ×2 (02:27→07:25)
[2018-07-17] MEDS: ALBUTEROL/IPRATROPIUM 3 ML NEB NEB SCH ×6 (02:27→23:50)
--- NOTE | 2018-07-17 03:00 | NUR ---
Patient resting quitly. Placed on bypap. Tolerating bipap well. Denies pain at this time. Continue monitor.
[2018-07-17 04:00] VITALS: BP_SYST 145; BP_SYST 150; BP_DIAS 88; BP_DIAS 97
[2018-07-17] MEDS: CEFEPIME 1GM/NS 0.9% 50 ML 50 ML IV SCH ×3 (05:34→21:35)
--- NOTE | 2018-07-17 06:38 | NUR ---
No noted changes in patient condition. Continue monitor.
--- NOTE | 2018-07-17 07:06 | NUR ---
Dr posey on the floor to see patient. Will f/u with orders.
[2018-07-17] MEDS: TIOTROPIUM 18 MCG INH POWDER INH SCH (07:44)
[2018-07-17] MEDS: SALMETEROL/FLUTICASONE 250/50 INH SCH ×2 (07:44→20:15)
[2018-07-17 09:00] VITALS: BP 145/97
--- NOTE | 2018-07-17 09:50 | Progress Note ---
DATE: 07/17/2018 Progress Note SUBJECTIVE: The patient is a 43-year-old female. The patient is here for acute exacerbation of asthma and pneumonia. The patient is alert and oriented x3, on her BiPAP at this time. The patient is still complaining of shortness of breath on exertion. MEDICATIONS: At this time, cefepime. She is on Mucomyst, albuterol, Atrovent treatments, Solu-Medrol 60 mg three times a day, duloxetine 30 mg twice a day and also on montelukast and Spiriva, and alprazolam for anxiety control. PHYSICAL EXAMINATION: VITAL SIGNS: Temperature is 99.1 and T-max is 99.3, pulse of 91, respirations of 16, blood pressure is 145/97, and pulse oximetry at 98% on 5 L of oxygen. CVS: S1 and S2. Normal rate and rhythm. LUNGS: Decreased air entry. Positive for wheezing and inspiratory wheezes all over. ABDOMEN: Nontender and nondistended. EXTREMITIES: No clubbing, no cyanosis, and no edema. LABORATORY DATA: From , show a white count of 20,000, and platelet count is 375, slight left shift present. Chemistry, sodium of 139, potassium of 3.9, BUN of 21, and creatinine 0.64. ASSESSMENT AND PLAN: 1. Acute exacerbation of asthma with IgA deficiency. Continue with antibiotic for atypical coverage, physiotherapy, Solu-Medrol, and also Mucomyst for lungs. 2. Leukocytosis. We will continue monitoring it. The patient has an antibiotic and appropriate coverage. 3. Tachycardia. 4. Hypertension, secondary to medication. Further recommendation and clinical course, the patient has not shown significant amount of improvement since last week, but will be in LTAC for further treatment. MD LEONOR Hector/ERMAL /[id number]
[2018-07-17 11:24] VITALS: BP 123/80
[2018-07-17] MEDS: AZITHROMYCIN 250 MG TAB PO SCH (12:32)
[2018-07-17] MEDS: MONTELUKAST SODIUM 10 MG TAB PO SCH (12:32)
[2018-07-17] MEDS: DULOXETINE HCL 30 MG DELAYED RELEASE PO SCH (12:32)
[2018-07-17] MEDS: METHYLPREDNISOLONE SOD SUCC 40 MG/ML VIAL 1ML IV SCH ×2 (12:35→21:00)
[2018-07-17 15:45] VITALS: BP 151/89
[2018-07-17] MEDS ORDERED: METHYLPREDNISOLONE SOD SUCC 40 MG/ML VIAL 1ML IV SCH (17:00)
--- NOTE | 2018-07-17 19:38 | Diagnostic Imaging Report ---
EXAMINATION: CHEST XRAY LINE PLACEMENT INDICATION: Check picc line placement COMPARISON: 07/13/2018. FINDINGS: TUBES and LINES: Interval placement of a right upper extremity PICC with distal tip in adequate position at the cavoatrial junction. LUNGS: Mild bibasilar subsegmental atelectasis. There is no evidence of pneumonia or pulmonary edema. PLEURA: No pleural effusion or pneumothorax. HEART AND MEDIASTINUM: The cardiomediastinal silhouette is unremarkable. BONES AND SOFT TISSUES: No acute osseous lesion. Soft tissues are unremarkable. UPPER ABDOMEN: No free air under the diaphragm. IMPRESSION: 1. Interval placement of a right upper extremity PICC with distal tip in adequate position at the cavoatrial junction. 2. Mild bibasilar subsegmental atelectasis. Signed by: Dr. Karla Merlos M.D. on 07/17/2018 7:34 PM
--- NOTE | 2018-07-17 19:41 | NUR ---
Received change of shift report from AM nurse. Rounds completed.
[2018-07-17 20:24] VITALS: BP 129/89
--- NOTE | 2018-07-17 21:06 | NUR ---
Patient in bed with family at bedside. Pt denies pain at this time. Pt on 5L n/c with no respiratory distress noted. IV intact to right FA HL. Picc line placed per xray ok to use.
[2018-07-18] VITALS (7 sets, daily range): BP systolic 121–154; BP diastolic 75–98
--- NOTE | 2018-07-18 | NUR ---
Patient in bed with spouse at bedside. Denied pain or discomfort at this time.IV to right F/A dry and intact. Also PICC line to right upper arm intact per xray ok to use. Patient with o2 at 5L n/c with no noted resp. distress. Patient changing position self. also patient place percussion jacket on herself 2-3 time daily. Vitals within normal limits. Continue monitor at this time.
[2018-07-18] MEDS: ALBUTEROL/IPRATROPIUM 3 ML NEB NEB SCH ×6 (03:50→23:00)
--- NOTE | 2018-07-18 03:58 | NUR ---
Patient resting quitly at this time. No c/o noted. Bipap in place and intact. No resp. distress noted.
[2018-07-18] MEDS: CEFEPIME 1GM/NS 0.9% 50 ML 50 ML IV SCH ×3 (06:00→21:28)
--- NOTE | 2018-07-18 07:00 | NUR ---
Report given to incoming nurse.
[2018-07-18] MEDS: TIOTROPIUM 18 MCG INH POWDER INH SCH (07:05)
[2018-07-18] MEDS: SALMETEROL/FLUTICASONE 250/50 INH SCH ×2 (07:05→19:00)
[2018-07-18] MEDS: METHYLPREDNISOLONE SOD SUCC 40 MG/ML VIAL 1ML IV SCH ×2 (08:20→16:33)
[2018-07-18] MEDS: MONTELUKAST SODIUM 10 MG TAB PO SCH (08:20)
[2018-07-18] MEDS: DULOXETINE HCL 30 MG DELAYED RELEASE PO SCH (08:20)
[2018-07-18] MEDS: AZITHROMYCIN 250 MG TAB PO SCH (08:20)
--- NOTE | 2018-07-18 09:54 | Progress Note ---
DATE: 07/18/2018 SUBJECTIVE: A 43-year-old female comes in with acute status asthmaticus. The patient is currently asymptomatic, however, using her BiPAP and shortness of breath is some better she says. MEDICATIONS: Include Mucomyst, albuterol, Atrovent treatment, Solu-Medrol, duloxetine, montelukast, and Spiriva. PHYSICAL EXAMINATION: VITAL SIGNS: Temperature is 98.9, pulse of 81, respirations 16, blood pressure is 121/75, and pulse oximetry is 98% on high-flow. HEENT: Normocephalic and atraumatic. Pupils react to light and accommodation. CVS: S1 and S2. Regular rate and rhythm. ABDOMEN: Nontender and nondistended. LUNGS: Decreased air entry into all lung murphy. LABORATORY AND IMAGING DATA: On the , white count was 20,000. We will recheck that today. Probably, it is secondary to Solu-Medrol. Microbiology, Gram stain, usual respiratory ericka. Imaging done on the shows mild basilar subsegmental atelectasis, otherwise, normal. ASSESSMENT AND PLAN: 1. Acute exacerbation of asthma, status asthmaticus. IgE deficiency. Plan is to continue with Solu-Medrol and Mucomyst. 2. Leukocytosis. Has antibiotic coverage and is probably reactive to Solu-Medrol. 3. Hypertension. Continue with monitoring the blood pressure. 4. Further recommendation and clinical course, the patient has been referred to LTAC for further treatment and secondary to the severity and ongoing hypoxia secondary to status asthmaticus. MD LEONOR Hector/MODL /[id number]
--- NOTE | 2018-07-18 20:22 | NUR ---
called and spoke with Dr Dutton for clarifying Mucomyst order.
[2018-07-19] VITALS (8 sets, daily range): BP systolic 127–148; BP diastolic 73–99
[2018-07-19] MEDS ORDERED: ACETYLCYSTEINE 20% INHAL SOLN 30 ML VIAL INH SCH (01:00)
[2018-07-19] MEDS: ALBUTEROL/IPRATROPIUM 3 ML NEB NEB SCH ×7 (01:40→19:52)
[2018-07-19] MEDS: ACETYLCYSTEINE 200 MG/ML 4ML VIAL INH SCH ×4 (01:40→19:52)
[2018-07-19] MEDS: CEFEPIME 1GM/NS 0.9% 50 ML 50 ML IV SCH (05:05)
[2018-07-19 05:22] LABS: BASOPHILS % 0.2 % (0.0-1.0); HEMATOCRIT 39.3 % (34.2-44.1); HEMOGLOBIN 13.5 g/dL (12.0-16.0); LYMPHOCYTES # (AUTO) 1.5 (1.0-3.2); LYMPHOCYTES % 8.1 % (18.0-39.1); MEAN CORPUSCULAR HEMOGLOBIN 30.8 pg (28-32); MEAN CORPUSCULAR HGB CONC 34.4 g/dL (31-35); MEAN CORPUSCULAR VOLUME 89.7 fL (81-99); MONOCYTES # (AUTO) 1.3 (0.2-0.8); MONOCYTES % 7.2 % (4.4-11.3); NEUTROPHILS # (AUTO) 14.9 (2.1-6.9); NEUTROPHILS % 83.3 % (38.7-80.0); PLATELET COUNT 313 x10e3/uL (140-360); RED BLOOD COUNT 4.38 x10e6/uL (3.6-5.1); RED CELL DISTRIBUTION WIDTH 12.2 % (11.7-14.4)
[2018-07-19 05:39] LABS: ALANINE AMINOTRANSFERASE 65 IU/L (0-55); ALBUMIN 3.2 g/dL (3.5-5.0); ALBUMIN/GLOBULIN RATIO 1.4 (0.8-2.0); ALKALINE PHOSPHATASE 53 IU/L (40-150); ANION GAP 10.4 mmol/L (8-16); BLOOD UREA NITROGEN 16 mg/dL (7-26); BUN/CREATININE RATIO 29 (6-25); CALCIUM 8.2 mg/dL (8.4-10.2); CARBON DIOXIDE 28 mmol/L (22-29); CHLORIDE 103 mmol/L (98-107); CREATININE, SERUM 0.55 mg/dL (0.57-1.11); EST GLOMERULAR FILTRATION RATE > 60 ML/MIN (60-); GLUCOSE 101 mg/dL (74-118); POTASSIUM 3.4 mmol/L (3.5-5.1); SODIUM 138 mmol/L (136-145)
[2018-07-19] MEDS: TIOTROPIUM 18 MCG INH POWDER INH SCH (06:00)
[2018-07-19] MEDS: SALMETEROL/FLUTICASONE 250/50 INH SCH ×2 (07:35→19:52)
[2018-07-19] MEDS: DULOXETINE HCL 30 MG DELAYED RELEASE PO SCH (08:48)
[2018-07-19] MEDS: MONTELUKAST SODIUM 10 MG TAB PO SCH (08:48)
[2018-07-19] MEDS: AZITHROMYCIN 250 MG TAB PO SCH (08:48)
[2018-07-19] MEDS: METHYLPREDNISOLONE SOD SUCC 40 MG/ML VIAL 1ML IV SCH ×2 (08:48→17:44)
--- NOTE | 2018-07-19 14:33 | NUR ---
This morning, spoke to Saida Wan, liaison with [facility] regarding pt acceptance. She stated admit is pending insurance auth. still. [place] [id number] . [facility] [address] [place] [address] Saida Wan, liaison: [phone]
[2018-07-20] VITALS: BP 133/89
[2018-07-20] MEDS: ALBUTEROL/IPRATROPIUM 3 ML NEB NEB SCH ×3 (02:57→14:40)
[2018-07-20 04:00] VITALS: BP 146/97
--- NOTE | 2018-07-20 07:19 | NUR ---
Report given to AM nurse,walking round done.
[2018-07-20 08:28] VITALS: BP 133/93
[2018-07-20 09:00] VITALS: BP 133/93
[2018-07-20] MEDS: TIOTROPIUM 18 MCG INH POWDER INH SCH (09:00)
[2018-07-20] MEDS: ACETYLCYSTEINE 200 MG/ML 4ML VIAL INH SCH ×3 (09:00→14:40)
[2018-07-20] MEDS: SALMETEROL/FLUTICASONE 250/50 INH SCH (09:00)
[2018-07-20] MEDS: METHYLPREDNISOLONE SOD SUCC 40 MG/ML VIAL 1ML IV SCH ×2 (10:09→17:19)
[2018-07-20] MEDS: MONTELUKAST SODIUM 10 MG TAB PO SCH (10:09)
[2018-07-20] MEDS: DULOXETINE HCL 30 MG DELAYED RELEASE PO SCH (10:09)
[2018-07-20 12:25] VITALS: BP 152/92
--- NOTE | 2018-07-20 14:46 | NUR ---
PT APPROVED TO GO TO [facility] PER [facility] RM 311 NURSE NANCY NOTIFIED OF NUMBER TO CALL REPORT AND ROOM NUMBER MOT IN [place] ON CHART NANCY WILL CALL REPORT WHEN SHE GETS BACK FROM LUNCH 14:57
[2018-07-20 15:51] VITALS: BP 137/84
--- NOTE | 2018-07-20 17:26 | NUR ---
PATIENT DISCHARGED TO [facility], LEFT UNIT IN ST[facility]CH[facility] VIA EMS, NO S/S OF DISTRESS. TOOK PATIENT'S BELONGS.
--- NOTE | 2018-07-22 02:11 | Discharge Summary ---
DISCHARGE DIAGNOSES: 1. Status asthmaticus. 2. Pneumonia. HISTORY OF PRESENT ILLNESS AND HOSPITAL COURSE: See hospital chart for full details. The patient is a lady, who presented with an asthmatic attack secondary to an IgA deficiency and was found to have a pneumonia. She was brought in and placed on IV antibiotics, steroids, oxygen and nebulizer treatments, and BiPAP. Unfortunately, the patient had a very slow progression. At the time of discharge, she was actually transferred to [facility] for continued care since she was making a slow progress. She was seen by Pulmonary here, who also will see her at [facility]. Please see hospital chart for full details. MD JAIRO Garza/ALLA /[id number]
== END 2018-07-20 17:59 | DRG 202 ==
LOC: ER 10:13 → ERHOLD 10:47 → IMCU 23:39
PROVIDERS: ADMIT Internal Medicine; ATTEND Internal Medicine
PROC: 02HV33Z Insertion of Infusion Device into Superior Vena Cava, Percutaneous Approach (ICD-10-PCS; principal; 2018-07-17)
DX: J45.902 Unspecified asthma with status asthmaticus (principal); J18.9 Pneumonia, unspecified organism; J96.01 Acute respiratory failure with hypoxia; D80.2 Selective deficiency of immunoglobulin A [IgA]; E87.6 Hypokalemia; F41.9 Anxiety disorder, unspecified
CPT/HCPCS: 36415; 36569; 71045; 71250; 80048; 80053; 82103; 82785; 83735; 84702; 85025; 85730; 87070; 87205; 93005; 94010; 94640; 94660; 94664; 94667; 94668; 96367; 96376; 97139; 99284; J0692; J1100; J1644; J1940; J2920; J2930; J3475; J7050

== ENCOUNTER → 2018-10-21 | Outpatient (CLI) | payer BC ==
[~2018-10-21] MED LIST: ACETYLCYST200 MG/1 M NEB; ADVAIR 250-501 EACH INH; IOPAMIDOL 370 MG/ML 200 ML INFUS..BTL INJ ONE; LEVAQUIN500 MG PO; PREDNISONE20 MG PO; SINGULAIR10 MG PO; SODIUM CHLORIDE 0.9% 50ML 50 ML ONE; SPIRIVA18 MCG INH; XOPENEX1.25 MG/3 NEB; flonase INH
--- NOTE | 2018-10-21 10:53 | Diagnostic Imaging Report ---
EXAM: CT Chest WITH contrast 10/21/2018 9:03 AM INDICATION: Shortness of breath COMPARISON: Chest x-ray, 07/17/2018; chest CT, 07/10/2018 TECHNIQUE: Chest was scanned utilizing a multidetector helical scanner from the lung apex through the level of the diaphragm after administration of IV contrast. Thin section reconstructions were obtained with special concentration on the pulmonary arteries. Coronal and sagittal reformations were obtained. Pulmonary embolism protocol was performed. Dose modulation, iterative reconstruction, and/or weight based adjustment of the mA/kV was utilized to reduce the radiation dose to as low as reasonably achievable IV CONTRAST: 58 cc Isovue-370 RADIATION DOSE: Total DLP: 179.42 mGy*cm Estimated effective dose: (DLP x 0.014 x size factor) mSv COMPLICATIONS: None FINDINGS: LINES/ TUBES: None. LUNGS AND AIRWAYS: No filling defect is identified within the pulmonary arteries to the segmental level. No focal airspace opacity or consolidation. A calcified granuloma is seen in the right lower lobe. Trachea and main bronchi are clear. PLEURA: The pleural spaces are clear. HEART AND MEDIASTINUM: The thyroid gland is normal. No mediastinal, hilar or axillary lymphadenopathy. The heart is normal in size.. There is no pericardial effusion. There is no dilatation of the thoracic aorta or main pulmonary artery. UPPER ABDOMEN: Included portions of the liver, spleen, pancreas and adrenals show no focal abnormality. BONES: No acute or suspicious bony lesions. SOFT TISSUES: Superficial surrounding soft tissue unremarkable. IMPRESSION: 1. No focal pulmonary opacity or consolidation. Previously noted bilateral patchy groundglass opacities have resolved suggesting an inflammatory etiology. 2. No CT evidence for acute pulmonary embolism. No dilatation of the thoracic aorta or main pulmonary artery. Staff: Lucia Signed by: Dr. Serafin Myers M.D. on 10/21/2018 10:49 AM
== END ==
LOC: CT 08:54
PROVIDERS: ATTEND Internal Medicine Pulmonary Disease
DX: R06.02 Shortness of breath (principal); J96.01 Acute respiratory failure with hypoxia
CPT/HCPCS: 71260; 93306; Q9967

== ENCOUNTER 2019-03-22 14:49 | Inpatient (IN) | payer BC ==
[~2019-03-22] VITALS: Ht 157.5 cm; Wt 49.0 kg
[~2019-03-22 14:49] MED LIST changes: -IOPAMIDOL 370 MG/ML 200 ML INFUS..BTL INJ ONE; -SODIUM CHLORIDE 0.9% 50ML 50 ML ONE
--- OUTSIDE RECORDS SUMMARY | 2019-03-22 14:52 | XMS REPORT ---
Author Author [facility] Address Unknown Phone Unavailable Care Team Providers Care Workers Compensation Coordinator Name Role Phone SULTANAVIJAYA Brandie TJ Unavailable Unavailable MATI ROSEN Unavailable Unavailable Payers Payer Name Policy Type Policy Number Effective Date Expiration Date Problems This patient has no known problems. Allergies, Adverse Reactions, Alerts Allergy Name Allergy Type Status Severity Reaction(s) Onset Date Inactive Date Treating Clinician Comments No Known Allergies DA Active U 2018-08-13 00:00:00 clarithromycin DA Active U 2005-03-05 00:00:00 cefpodoxime DA Active U 2005-03-05 00:00:00 BIAXIN DA Active U 2005-03-05 00:00:00 No Known Contrast Allergies DA Active U 2005-03-05 00:00:00 No Known Food Allergies DA Active U 2005-03-05 00:00:00 No Known Other Allergies DA Active U 2005-03-05 00:00:00 VANTIN DA Active U 2005-03-05 00:00:00 Medications This patient has no known medications. Results Test Description Test Time Test Comments Text Results Atomic Results Result Comments DIAG MAMM BILATERAL DIDIER CAD DIGITAL 2019-02-08 11:05:02 - DIAG MAMM BILATERAL DIDIER CAD DIGITALBILATERAL DIGITAL DIAGNOSTIC MAMMOGRAM 3D/2D WITH CAD: 02/08/2019CLINICAL: Palpable mass, left breast. Digital breast tomosynthesis was performed in addition to routine CC and MLO views. Current mammographic images were evaluated by either a Night Zookeeper M-Vu or a [employer] ImageChecker CAD (computer aided detection system). No prior exams were available for comparison. The tissue of both breasts is extremely dense, which lowers the sensitivity of mammography. There are benign calcifications in the left breast. There also are post operative findings in the left breast. No suspicious mass, malignant type calcification, or axillary lymph node abnormality detected. INCOMPLETE: ADDITIONAL IMAGING EVALUATION NEEDEDThere is no mammographic evidence of malignancy. Breast ultrasound to follow.- BREAST ULTRASOUND BILATERALULTRASOUND OF BOTH BREASTS AND BOTH AXILLA: 02/08/2019No prior exams were available for comparison. Real-time ultrasound of the right and left breast and axillae was performed. No abnormalities were seen sonographically in either breast or either axilla. IMPRESSION: BENIGN There is no sonographic evidence of malignancy. Resume annual screening mammography in one year. Antony Mcleod M.D. rb/:02/08/2019 11:05:02 Manufacturing Quality Engineer: Torrie MCKEON, [facility]-FWletter sent: BIRADS 1-2 Combo FU Letter Mammogra m BI-RADS: 0 Incomplete: Additional Imaging Evaluation Needed Ultrasound BI- RADS: [address] CHEST W 2018-10-21 10:38:00 [place] [address] Patient Name: DEBRA BARKER MR #: [id number] : 1975 Age/Sex: 43/F Req #: [id number] Adm Physician: Ordered by: TJ GRIMM MD Report #: [id number] Location: CT Room/Bed: Procedure: [id number] CT/CT CHEST W Exam Date: 10/21/18 Exam Time: 1004 REPORT STATUS: Signed EXAM: CT Chest WITH contrast 10/21/2018 9:03 AM INDICATION: Shortness of breath COMPARISON: Chest x-ray, 07/17/2018; chest CT, 07/10/2018 TECHNIQUE: Chest was scanned utilizing a multidetector helical scanner from the lung apex through the level of the diaphragm after administration of IV contrast. Thin section reconstructions were obtained with special concentration on the pulmonary arteries. Coronal and sagittal reformations were obtained. Pulmonary embolism protocol was performed. Dose modulation, iterative reconstruction, and/or weight based adjustment of the mA/kV was utilized to reduce the radiation dose to as low as reasonably achievable IV CONTRAST: 58 cc Isovue-370 RADIATION DOSE: Total DLP: 179.42 mGy*cm Estimated effective dose: (DLP x 0.014 x size factor) mSv COMPLICATIONS: None FINDINGS: LINES/ TUBES: None. LUNGS AND AIRWAYS: No filling defect is identified within the pulmonary arteries to the segmental level. No focal airspace opacity or consolidation. A calcified granuloma is seen in the right lower lobe. Trachea and main bronchi are clear. PLEURA: The pleural spaces are clear. HEART AND MEDIASTINUM: The thyroid gland is normal. No mediastinal, hilar or axillary lymphadenopathy. The heart is normal in size.. There is no pericardial effusion. There is no dilatation of the thoracic aorta or main pulmonary artery. UPPER ABDOMEN: Included portions of the liver, spleen, pancreas and adrenals show no focal abnormality. BONES: No acute or suspicious bony lesions. SOFT TISSUES: Superficial surrounding soft tissue unremarkable. IMPRESSION: 1. No focal pulmonary opacity or consolidation. Previously noted bilateral patchy groundglass opacities have resolved suggesting an inflammatory etiology. 2. No CT evidence for acute pulmonary embolism. No dilatation of the thoracic aorta or main pulmonary artery. Staff: Lucia Signed by: Dr. Serafin Myers M.D. on 10/21/2018 10:49 AM Dictated By: SERAFIN MYERS MD 1049 Transcribed By: RUSS on 10/21/18 1046 COPY TO: TJ GRIMM MD COMPREHENSIVE METABOLIC PANEL 2018-08-15 22:24:00 SODIUM (test code=NA) 142 mmol/L 136-145 POTASSIUM (test code=K) 3.8 mmol/L 3.5-5.1 CHLORIDE (test code=CL) 107.0 mmol/L 98-107 CARBON DIOXIDE (test code=CO2) 29.0 mmol/L 21-32 ANION GAP (test code=GAP) 9.8 10-20 GLUCOSE (test code=GLU) 106 mg/dL 74-106 BLOOD UREA NITROGEN (test code=BUN) 14 mg/dL 7-18 GLOMERULAR FILTRATION RATE (test code=GFR) > 60 mL/min >=60 Estimated GFR by using Modified MDRD formula.Chronic kidney disease is defined as either kidney damageor GFR <60 mL/min/1.73 m2 for >3 months. CREATININE (test code=CREAT) 0.40 mg/dL 0.55-1.02 Note change in reference range due to change in reagent. BUN/CREATININE RATIO (test code=BUN/CREA) 35.0 10-20 TOTAL PROTEIN (test code=PROT) 5.5 gram/dL 6.4-8.2 ALBUMIN (test code=ALB) 3.3 g/dL 3.4-5.0 GLOBULIN (test code=GLOB) 2.2 gram/dL 2.7-4.2 ALBUMIN/GLOBULIN RATIO (test code=A/G) 1.5 0.75-1.50 CALCIUM (test code=CA) 8.2 mg/dL 8.5-10.1 BILIRUBIN TOTAL (test code=BILT) 0.30 mg/dL 0.0-1.0 SGOT/AST (test code=AST) 20 IUnit/L 15-37 SGPT/ALT (test code=ALT) 116 IUnit/L 12-78 ALKALINE PHOSPHATASE TOTAL (test code=ALKP) 61 IUnit/L 45-117 Note change in reference range due to change in reagent. CBC W/AUTO [id number] 22:07:00* Test Item Value Reference Range Comments WHITE BLOOD CELL (test code=WBC) 10.4 K/mm3 4.5-12.5 RED BLOOD CELL (test code=RBC) 3.88 mill/mm3 3.7-5.2 HEMOGLOBIN (test code=HGB) 11.7 gram/dL 11.5-15.5 HEMATOCRIT (test code=HCT) 37.2 % 36.0-46.0 MEAN CELL VOLUME (test code=MCV) 95.9 fL 80-98 MEAN CELL HGB (test code=MCH) 30.2 picogram 27.0-33.0 MEAN CELL HGB CONCETRATION (test code=MCHC) 31.5 gram/dL 33.0-36.0 RED CELL DISTRIBUTION WIDTH (test code=RDW) 13.8 % 11.6-16.2 RED CELL DISTRIBUTION WIDTH SD (test code=RDW-SD) 48.5 fL 37.0-51.0 PLATELET COUNT (test code=PLT) 238 K/mm3 150-450 MEAN PLATELET VOLUME (test code=MPV) 10.3 fL 6.7-11.0 NEUTROPHIL % (test code=NT%) 79.8 % 39.0-69.0 IMMATURE GRANULOCYTE % (test code=IG%) 1.8 % 0.0-5.0 LYMPHOCYTE % (test code=LY%) 12.2 % 25.0-55.0 MONOCYTE % (test code=MO%) 6.0 % 0.0-10.0 EOSINOPHIL % (test code=EO%) 0.0 % 0.0-5.0 BASOPHIL % (test code=BA%) 0.2 % 0.0-1.0 NUCLEATED RBC % (test code=NRBC%) 0.0 % 0-0 NEUTROPHIL # (test code=NT#) 8.27 K/mm3 1.8-7.7 IMMATURE GRANULOCYTE # (test code=IG#) 0.19 x10 3/uL 0-0.03 LYMPHOCYTE # (test code=LY#) 1.26 K/mm3 1.0-5.0 MONOCYTE # (test code=MO#) 0.62 K/mm3 0-0.8 EOSINOPHIL # (test code=EO#) 0.00 K/mm3 0.0-0.5 BASOPHIL # (test code=BA#) 0.02 K/mm3 0.0-0.2 NUCLEATED RBC # (test code=NRBC#) 0.00 K/mm3 0.0-0.1 MANUAL DIFF REQUIRED (test code=MDIFF) NO CBC W/AUTO [id number] 22:05:00* Test Item Value Reference Range Comments WHITE BLOOD CELL (test code=WBC) K/mm3 4.5-12.5 RED BLOOD CELL (test code=RBC) mill/mm3 3.7-5.2 HEMOGLOBIN (test code=HGB) 11.7 gram/dL 11.5-15.5 HEMATOCRIT (test code=HCT) 37.2 % 36.0-46.0 MEAN CELL VOLUME (test code=MCV) fL 80-98 MEAN CELL HGB (test code=MCH) picogram 27.0-33.0 MEAN CELL HGB CONCETRATION (test code=MCHC) gram/dL 33.0-36.0 RED CELL DISTRIBUTION WIDTH (test code=RDW) % 11.6-16.2 RED CELL DISTRIBUTION WIDTH SD (test code=RDW-SD) fL 37.0-51.0 PLATELET COUNT (test code=PLT) K/mm3 150-450 MEAN PLATELET VOLUME (test code=MPV) fL 6.7-11.0 NEUTROPHIL % (test code=NT%) % 39.0-69.0 IMMATURE GRANULOCYTE % (test code=IG%) % 0.0-5.0 LYMPHOCYTE % (test code=LY%) % 25.0-55.0 MONOCYTE % (test code=MO%) % 0.0-10.0 EOSINOPHIL % (test code=EO%) % 0.0-5.0 BASOPHIL % (test code=BA%) % 0.0-1.0 NEUTROPHIL # (test code=NT#) K/mm3 1.8-7.7 LYMPHOCYTE # (test code=LY#) K/mm3 1.0-5.0 MONOCYTE # (test code=MO#) K/mm3 0-0.8 EOSINOPHIL # (test code=EO#) K/mm3 0.0-0.5 BASOPHIL # (test code=BA#) K/mm3 0.0-0.2 [id number] 14:01:00* Test Item Value Reference Range Comments HEMOGLOBIN (test code=HGB) 12.1 gram/dL 11.5-15.5 1158PLATELET [id number] 14:01:00* Test Item Value Reference Range Comments PLATELET COUNT (test code=PLT) 222 K/mm3 150-450 [id number] 13:58:00* Test Item Value Reference Range Comments HEMOGLOBIN (test code=HGB) 12.1 gram/dL 11.5-15.5 1158PLATELET [id number] 13:58:00* Test Item Value Reference Range Comments PLATELET COUNT (test code=PLT) K/mm3 340-533 4725- XR CHEST 1 [id number] 13:36:00 FAX: John Franco [phone] [place]: [address] St: ADM FAX: Flo Eldridge MD [phone] Name: DERBA BARKER [facility] : 1975 Age/S: 43/F [address] [facility] Unit #: [id number] Loc: [address] [address] Phys: Flo Cancino MD Acct: [id number] Dis Date: Status: ADM IN PHONE #: [phone] Exam Date: 08/15/2018 1305 FAX #: [phone] Reason: PNEUMONIA EXAMS: CPT CODE: [id number] XR CHEST 1 V 27670 HISTORY: PNEUMONIA TECHNIQUE: AP chest x-ray COMPARISON: None FINDINGS: No airspace cons olidation or pleural effusion. Normal heart size. Mediastinal silhouette i s unremarkable. Visualized osseous structures are grossly intact. Right PI CC line positioned in the SVC. IMPRESSION: No radiographic evidence of acute cardiopulmonary process. Electronical ly Signed by Alma Francis D.O. on 08/15/2018 at 1871 Report ed and signed by: Alma Francis D.O. CC: John Payan [facility] DO; Flo Cancino M.D. Technologist: DARNELL REARDON RT; Keyshawn Millan on RT(R) Trnscrd Date/Time/By: 08/15/2018 (6058) : By: Avelina 1 Orig Print D/T: S: 08/15/2018 (7482) PAGE 1 Signed Report CHEST XRAY LINE [id number] 19:33:00 [place] [address] Patient Name: DEBRA BARKER MR #: [id number] : 1975 Age/Sex: 43/F Req #: [id number] Adm Physician: MATI ROSEN MD Ordered by: PHANI FAN MD Report #: [id number] Location: [facility] Room/Bed: [place] [address] Procedure: [id number] DX/C HEST XRAY LINE PLACEMENT Exam Date: 07/17/18 Exam Ti me: 1900 REPORT STATUS: Signed E XAMINATION: CHEST XRAY LINE PLACEMENT INDICATION: Check picc line haris cement COMPARISON: 07/13/2018. FINDINGS: TUBES and LINES: I nterval placement of a right upper extremity PICC with distal tip in adequate position at the cavoatrial junction. LUNGS: Mild bibasilar subsegmental ate lectasis. There is no evidence of pneumonia or pulmonary edema. PLEURA: No pleural effusion or pneumothorax. HEART AND MEDIASTINUM: The cardiome diastinal silhouette is unremarkable. BONES AND SOFT TISSUES: No acute osseous lesion. Soft tissues are unremarkable. UPPER ABDOMEN: No free a ir under the diaphragm. IMPRESSION: 1. Interval placement of a ri ght upper extremity PICC with distal tip in adequate position at the cavoatria l junction. 2. Mild bibasilar subsegmental atelectasis. Signed by: Dr. Karla Chow M.D. on 07/17/2018 7:34 PM Dictated By: AYLIN SALINAS MD, MD 33 T ranscribed By: RUSS on 07/17/181933 COPY TO: PHANI FAN MD CHEST SINGLE (PORTABLE)2018-07-13 12:51:[address], [place] [address] Patient Name: DEBRA BARKER MR #: [id number] : 1975 Age/Sex: 43/F Req #: [id number] Adm Physician: MATI ROSEN MD Ordered by: PETER MENDOSA MD Report #: [id number] Location: [facility] Room/Bed: [place] [address] Procedure: [id number] DX/CHEST SINGLE (PORTABLE) Exam Date: 07/13/18 Exam Time: 1200 REPORT STATUS: Signed EXAMINATION: CHEST SINGLE (PORTABLE) INDICATION: Shortness of breath. COMPARISON: CT chest 07/10/2018 and chest radiograph 07/08/2018. F INDINGS: TUBES and LINES: None. LUNGS: Mild patchy bibasilar opacities. No new consolidation. No evidence of pulmonary edema. PLEURA: No pleural effusion or pneumothorax. HEART AND MEDIASTINUM: The cardiomediastinal s ilhouette is unremarkable. BONES AND SOFT TISSUES: No acute osseous le leonora. Soft tissues are unremarkable. UPPER ABDOMEN: No free air under th e diaphragm. IMPRESSION: Mild patchy bibasilar opacities, better jessica racterized as infectious/inflammatory process on CT chest from 07/10/2018. No new consolidation. No evidence of pulmonary edema. Signed by: Dr. Robert Pickett MD on 07/13/2018 12:53 PM Dictated By: ROBERT PICKETT MD 1256 Transcribed By: RUSS on 07/13/18 1255 COPY TO: PETER MENDOSA MD CT CHEST [id number] 07:28:00 [place] [address] Patient Name: DEBRA BARKER MR #: [id number] : [birth year] Age/Sex: 43/F Req #: [id number] [facility] Physician: MATI ROSEN MD Ordered by: PHANI FAN MD Report #: [id number] Location: [facility] Room/Bed: [place] [address] Procedure: [id number] CT/C T CHEST WO Exam Date: 07/10/18 Exam Time: 45 REPORT STATUS: Signed CT CHEST HI-RES History: Asthma, cough for 2 weeks HRCT [id number] Techn ique: Axial noncontrast images of the lungs are obtained from the apices to th e bases in both suspended inspiration and expiration by using 1.25 mm collimat ion and 10 mm intervals Additional prone inspiration images were obtained. A sharp-edge reconstruction algorithm was used and the images reviewed with lung windows. No intravenous contrast was administered. RADIATION DOSE: Total DLP: 530.03 mGy*cm Estimated effective dose: (DLP x 0.015 x size factor) mSv CTDIvol has been reviewed. It is below the limits set by the Radiation Protocol Committee (RPC). Comparison: Chest x-ray 07/08/2018. LINES/ TUBES: None. Thyroid/base of neck: Normal in size without mass in the visualized parenchyma. Lymph nodes: No mediastinal, hilar or axil mariana lymphadenopathy. LUNGS AND AIRWAYS: Right lung: Patchy groundgla ss opacities in the all lobes, predominantly the lower lobe. No evidence of ho neycombing or subpleural bands. No evidence of centrilobular or perilymphatic nodules. No interlobular septal thickening. No evidence of air trapping. Calci fied nodule in the lateral lower lobe measures 2 mm. Left lung: Patchy gr oundglass opacities in the medial lingula and lower lobe. No honeycombing or s ubpleural bands. No evidence of centrilobular perilymphatic nodules. No eviden ce of air trapping. No interlobular septal thickening. Airways: No bronchi ectasis or significant bronchial wall thickening. No intraluminal filling defe cts. PLEURA: Mild biapical pleural-parenchymal thickening. No pleural effus ion or pleural based mass. HEART AND MEDIASTINUM: The heart is normal in size. There is no pericardial effusion. The thoracic aorta and pulmonary art eries are unremarkable. The esophagus is collapsed. UPPER ABDOMEN: Unrema rkable. BONES: The visualized bony thorax is within normal limits. SOF T TISSUES: Unremarkable. IMPRESSION: 1. Multifocal groundglass opacit ies in each lung, lower lobe predominant, suggestive of an infectious/inflamma tory process, including hypersensitivity pneumonia. Recommend follow-up with conventional CT in 3-4 months to document interval change/resolution. 2. No findings to suggest interstitial lung disease. 3. No lymphadenopathy on this u nenhanced examination. Signed by: Dr. Rose Fang MD on 07/10/2018 7:4 0 AM Dictated By: ROSE FANG MD 9 Transcribed By: RUSS on 07/10/18739 C OPY TO: PHANI FAN MD CHEST SINGLE (PORTABLE)2018-07-08 13:50:00 [place] [address] Patient Name: DEBRA BARKER MR #: [id number] : 1975 Age/Sex: 43/F Req #: [id number] Adm Physician: MATI ROSEN MD Ordered by: ALYSSA CACERES MD Report #: [id number] Location: [facility] Room/Bed: [place] [address] Procedure: [id number] DX/CHEST SINGLE (PORTABLE) Exam Date: 07/08/18 Aracelis m Time: 1140 REPORT STATUS: Signed EXAM: CHEST SINGLE (PORTABLE), AP Portable DATE: 07/08/2018 Time stamp on exa m: 11:49 AM INDICATION: Asthma, cough with shortness of breath COMPARISON: N one FINDINGS: LINES/TUBES: None LUNGS: No consolidations or edema. B ibasilar opacities likely is secondary to atelectasis. PLEURA: No effusi ons or pneumothorax. HEART AND MEDIASTINUM: Normal size and contour. B ONES AND SOFT TISSUES: No acute findings. IMPRESSION: Bibasilar opacities . Signed by: Dr. Delmer Rosas DO on 07/08/2018 1:52 PM Dict ated By: DELMER ROSAS DO 1352 COPY TO: MAURO CACERES MD
[2019-03-22] MEDS ORDERED: SODIUM CHLORIDE 0.9% 1000ML 1,000 ML IV STA (15:41)
[2019-03-22] MEDS ORDERED: FAMOTIDINE 20 MG/2 ML VIAL IV NR (15:41)
[2019-03-22] MEDS ORDERED: IPRATROPIUM BROMIDE 0.02% 2.5 ML NEB NEB STA (15:41)
[2019-03-22] MEDS ORDERED: CEFTRIAXONE SOD 1 GM/NS 50 ML 50 ML IV STA (15:41)
[2019-03-22] MEDS ORDERED: METHYLPREDNISOLONE SOD SUCC 125 MG/2ML VIAL IV STA (15:41)
[2019-03-22] MEDS ORDERED: SODIUM CHLORIDE 0.9% 1000ML 500 ML IV STA (15:41)
[2019-03-22] MEDS ORDERED: AZITHROMYCIN 500MG/NS 250 ML 250 ML IV STA (15:41)
[2019-03-22] MEDS ORDERED: CEFTRIAXONE SOD 1 GM VIAL IV SCH (15:45)
[2019-03-22] MEDS ORDERED: DEXAMETHASONE SOD PHOS 10 MG/1 ML VIAL IV NR (16:00)
[2019-03-22] MEDS ORDERED: ALBUTEROL SULF 0.083% NEB SOLN 3 ML NEB NEB NR (16:00)
[2019-03-22 16:23] LABS: BASOPHILS % 0.3 % (0.0-1.0); EOSINOPHILS % 0.1 % (0.0-6.0); HEMATOCRIT 44.1 % (34.2-44.1); HEMOGLOBIN 15.4 g/dL (12.0-16.0); LYMPHOCYTES # (AUTO) 0.8 (1.0-3.2); LYMPHOCYTES % 6.4 % (18.0-39.1); MEAN CORPUSCULAR HEMOGLOBIN 30.6 pg (28-32); MEAN CORPUSCULAR HGB CONC 34.9 g/dL (31-35); MEAN CORPUSCULAR VOLUME 87.5 fL (81-99); MONOCYTES # (AUTO) 0.1 (0.2-0.8); MONOCYTES % 1.1 % (4.4-11.3); NEUTROPHILS # (AUTO) 11.3 (2.1-6.9); NEUTROPHILS % 91.8 % (38.7-80.0); PLATELET COUNT 428 x10e3/uL (140-360); RED BLOOD COUNT 5.04 x10e6/uL (3.6-5.1); RED CELL DISTRIBUTION WIDTH 12.4 % (11.7-14.4)
[2019-03-22 16:42] LABS: BILIRUBIN,URINE NEGATIVE (NEGATIVE); CLARITY,URINE CLEAR (CLEAR); COLOR,URINE YELLOW (YELLOW); KETONES,URINE 1+ (NEGATIVE); LEUKOCYTE ESTERASE ,URINE NEGATIVE (NEGATIVE); NITRITE,URINE NEGATIVE (NEGATIVE); PROTEIN,URINE DIPSTICK NEGATIVE (NEGATIVE); URINE UROBILINOGEN 0.2 mg/dL (0.2 - 1)
[2019-03-22 16:42] LABS: ALANINE AMINOTRANSFERASE 14 IU/L (0-55); ALBUMIN 4.1 g/dL (3.5-5.0); ALBUMIN/GLOBULIN RATIO 1.4 (0.8-2.0); ALKALINE PHOSPHATASE 74 IU/L (40-150); ANION GAP 14.5 mmol/L (8-16); BLOOD UREA NITROGEN 12 mg/dL (7-26); BUN/CREATININE RATIO 20 (6-25); CALCIUM 9.6 mg/dL (8.4-10.2); CARBON DIOXIDE 23 mmol/L (22-29); CHLORIDE 106 mmol/L (98-107); CREATINE KINASE 44 IU/L (29-168); EST GLOMERULAR FILTRATION RATE > 60 ML/MIN (60-); GLUCOSE 102 mg/dL (74-118); POTASSIUM 3.5 mmol/L (3.5-5.1); SODIUM 140 mmol/L (136-145)
--- NOTE | 2019-03-22 16:46 | Diagnostic Imaging Report ---
Chest, portable AP view History: Shortness of breath, wheezing Comparison: Chest CT dated 10/21/2018, chest radiograph dated 07/13/2018 IMPRESSION: The heart is within normal limits size. The mediastinal and hilar contours are unremarkable. There is no focal consolidation, sizable pleural effusion, or pneumothorax. No acute osseous abnormalities. Signed by: Apolinar Rosario MD on 03/22/2019 4:43 PM
[2019-03-22 17:02] LABS: BACTERIA,URINE RARE /HPF; EPITHELIAL CELLS,URINE FEW /LPF
[2019-03-22 17:02] LABS: THYROID STIMULATING HORMONE 0.962 uIU/mL (0.350-4.940)
[2019-03-22] MEDS: MAGNESIUM SULFATE 2GM/50ML 50 ML IV ONE ×2 (17:22→19:25)
[2019-03-22] MEDS: AZITHROMYCIN 500MG/NS 250 ML 250 ML IV SCH (17:32)
[2019-03-22] MEDS: FAMOTIDINE 20 MG/2 ML VIAL IV SCH (17:33)
[2019-03-22] MEDS: IPRATROPIUM BROMIDE 0.02% 2.5 ML NEB NEB SCH (17:55)
[2019-03-22] MEDS: METHYLPREDNISOLONE SOD SUCC 40 MG/ML VIAL 1ML IV SCH ×2 (18:00→23:28)
--- NOTE | 2019-03-22 20:45 | NUR ---
Received patient calm in bed, no complaints raised. on oxygen, saturating well, chest congested but patient hemodynamically stable
[2019-03-22 21:00] VITALS: BP 127/82
--- NOTE | 2019-03-22 23:00 | NUR ---
Patient on BIPAP prn, set up
[2019-03-23] VITALS (7 sets, daily range): BP systolic 114–136; BP diastolic 73–90
[2019-03-23] MEDS: LEVALBUTEROL HCL SOLN NEBU 1.25 MG/3 ML NEB INH PRN ×2 (00:45→20:15)
[2019-03-23] MEDS: IPRATROPIUM BROMIDE 0.02% 2.5 ML NEB NEB SCH ×4 (00:45→20:15)
[2019-03-23 05:13] LABS: HEMATOCRIT 38.9 % (34.2-44.1); LYMPHOCYTES # (AUTO) 0.4 (1.0-3.2); LYMPHOCYTES % 5.6 % (18.0-39.1); MEAN CORPUSCULAR HEMOGLOBIN 29.6 pg (28-32); MEAN CORPUSCULAR HGB CONC 33.4 g/dL (31-35); MEAN CORPUSCULAR VOLUME 88.6 fL (81-99); MONOCYTES % 0.6 % (4.4-11.3); NEUTROPHILS # (AUTO) 6.6 (2.1-6.9); NEUTROPHILS % 93.5 % (38.7-80.0); PLATELET COUNT 354 x10e3/uL (140-360); RED BLOOD COUNT 4.39 x10e6/uL (3.6-5.1); RED CELL DISTRIBUTION WIDTH 12.4 % (11.7-14.4)
[2019-03-23 05:32] LABS: CREATINE KINASE 34 IU/L (29-168)
[2019-03-23 05:33] LABS: ANION GAP 13.4 mmol/L (8-16); BLOOD UREA NITROGEN 10 mg/dL (7-26); BUN/CREATININE RATIO 18 (6-25); CALCIUM 8.4 mg/dL (8.4-10.2); CARBON DIOXIDE 20 mmol/L (22-29); CHLORIDE 110 mmol/L (98-107); CREATININE, SERUM 0.56 mg/dL (0.57-1.11); EST GLOMERULAR FILTRATION RATE > 60 ML/MIN (60-); GLUCOSE 168 mg/dL (74-118); MAGNESIUM 2.4 MG/DL (1.3-2.1); POTASSIUM 4.4 mmol/L (3.5-5.1); SODIUM 139 mmol/L (136-145)
[2019-03-23] MEDS: METHYLPREDNISOLONE SOD SUCC 40 MG/ML VIAL 1ML IV SCH ×4 (06:19→23:32)
--- NOTE | 2019-03-23 06:20 | NUR ---
Patient calm in bed, on BIPAP, reports no improvement, vitals stable
[2019-03-23] MEDS: ACETYLCYSTEINE 20% INHAL SOLN 30 ML VIAL INH SCH ×3 (06:50→20:15)
--- NOTE | 2019-03-23 07:07 | NUR ---
Patient handed over stable, asleep on BIPAP
[2019-03-23] MEDS: FAMOTIDINE 20 MG/2 ML VIAL IV SCH ×2 (10:06→16:48)
[2019-03-23] MEDS: SALMETEROL/FLUTICASONE 250/50 INH SCH (10:06)
[2019-03-23] MEDS: MONTELUKAST SODIUM 10 MG TAB PO SCH (10:06)
[2019-03-23] MEDS: TIOTROPIUM 18 MCG INH POWDER INH SCH (10:06)
--- NOTE | 2019-03-23 15:22 | Diagnostic Imaging Report ---
EXAMINATION: CT scan of the chest without contrast. TECHNIQUE: Spiral CT images of the chest were performed from the lung apices to the level of the adrenal glands. No intravenous contrast was administered per referring physician request. Coronal and sagittal reformatted images were obtained. COMPARISON: Chest radiograph 03/22/2019, CT scan of the chest 10/21/2018, CT scan of the chest 07/10/2018 CLINICAL HISTORY:Shortness of breath, cough DISCUSSION: ABSENCE OF INTRAVENOUS CONTRAST DECREASES SENSITIVITY FOR DETECTION OF FOCAL LESIONS AND VASCULAR PATHOLOGY. LINES/TUBES: None. LUNGS AND AIRWAYS: Patchy and confluent foci of groundglass opacity predominantly within the lower lobes, similar to that noted on 07/10/2018, though less extensive, for example in the left lower lobe on series 3 image 63 and in the right lower lobe on series 3 image 69. Calcified granuloma in the right lower lobe along the major fissure is unchanged. Trachea, mainstem bronchi, and central lobar and segmental bronchi are patent. PLEURA: No pneumothorax or pleural effusions. HEART AND MEDIASTINUM: Subcentimeter nodule in the left thyroid lobe is unchanged relative to 10/21/2018. No ectasia or aneurysmal dilatation of the thoracic aorta. Great vessel origins are normal in caliber and configuration. Pulmonary outflow tract is of normal caliber. No axillary, hilar, or mediastinal lymphadenopathy. The heart and pericardium are within normal limits. LYMPH NODES: There is no mediastinal, hilar or axillary lymphadenopathy. ABDOMEN: Visualized portions of the liver, spleen, adrenals, and left kidney are unremarkable in their unenhanced appearance. BONES AND SOFT TISSUES: No osseous destructive lesions. No focal soft tissue abnormalities. IMPRESSION: Lower lobe predominant multifocal groundglass opacities, similar though less severe than that described on 07/10/2018, concerning for multifocal pneumonia, though the differential diagnosis includes hypersensitivity pneumonitis as previously discussed. Signed by: Dr. Diego Slaughter M.D. on 03/23/2019 3:18 PM
--- NOTE | 2019-03-23 16:41 | Diagnostic Imaging Report ---
Examination: Single AP view of the chest. COMPARISON: CT chest same day, single view chest radiograph 03/22/2019 INDICATION: PICC placement DISCUSSION: Interval placement of a right upper extremity PICC. The tip terminates over the expected region of the low superior vena cava. Lungs are well-inflated. Patchy groundglass opacities described on comparison CT chest are not visualized by plain radiography. Cardiomediastinal contour is within normal limits. No acute osseous abnormality. IMPRESSION: Tip of right upper extremity PICC terminates over the low superior vena cava. Signed by: Dr. Diego Slaughter M.D. on 03/23/2019 4:38 PM
[2019-03-23] MEDS: AZITHROMYCIN 500MG/NS 250 ML 250 ML IV SCH (16:48)
[2019-03-23] MEDS ORDERED: CEFTRIAXONE SOD 1 GM/NS 50 ML 50 ML IV SCH (17:00)
--- NOTE | 2019-03-23 20:26 | Consultation ---
DATE OF CONSULTATION: 03/23/2019 Pulmonary Consultation PATIENT LOCATION: [place] [address]. HISTORY OF PRESENT ILLNESS: Ms. Mendoza is a 44-year-old woman, well known to me with severe persistent asthma, chronic hypoxemic respiratory failure on oxygen, and IgA deficiency, who had been doing well up until about the weekend, where she started having increasing cough, sputum, and shortness of breath. States she felt like there was a lot of junk in her lungs, chest felt heavy. She saw her PCP and was sent to the hospital. She still has shortness of breath, cough, and sputum production that is very thick, hard to expectorate. She was having dyspnea with exertion, but that is significantly worse. PAST MEDICAL HISTORY: As described above. She does have a history of multiple exacerbations requiring prolonged hospitalizations. FAMILY HISTORY: Mother and father both alive with high blood pressure. SOCIAL HISTORY: She is . She does not smoke. She is a lifetime nonsmoker. Does not drink. There is no history of drug use. MEDICATIONS: Have been reviewed and she is on Rocephin, azithromycin, Solu-Medrol as well as nebulized bronchodilators, and Mucomyst. ALLERGIES: REVIEW OF SYSTEMS: Negative as above. She denies any nausea, vomiting, diarrhea, constipation, fevers, chills, or night sweats. PHYSICAL EXAMINATION: VITAL SIGNS: She is afebrile. Heart rate is around 100. Respiratory rate is anywhere from 17 to 22, saturations are 100%. That is with the BiPAP in place. Blood pressure 121/79. GENERAL APPEARANCE: This is a thin white woman, who is tachypneic. You can hear audible breath sounds. She is able to speak in near complete sentences, a little bit anxious. She looks older than her stated age. HEENT: Her head is normocephalic and atraumatic. Pupils are round and reactive. Mucous membranes moist. NECK: Supple. Trachea midline. LUNGS: She has bilateral wheezes and rhonchi. HEART: Regular rate and rhythm. No murmurs, rubs, or gallops. ABDOMEN: Soft and nontender. EXTREMITIES: Have no cyanosis, clubbing, or edema. LABORATORY DATA: White count was 12 with hemoglobin and hematocrit of 14 and 44 with 428,000 platelets with no left shift. No eosinophils. White count today is down to 7, hemoglobin and hematocrit are 13 and 39. Chemistry at arrival was notable for potassium of 3.5 and creatinine is 0.6. Troponin was negative. BNP was normal. Albumin was normal. Protein was normal as was the TSH. Influenza A and B were negative. Urinalysis had some mild ketonuria. I have reviewed the chest x-ray shows hyperinflation. There may be some additional markings at the bases, right greater than left . No overt consolidations or effusions. ASSESSMENT: 1. Respiratory distress with hypoxemic respiratory failure, [id number]. 2. Asthma with acute exacerbation/status asthmaticus. 3. Acute bronchitis. She could have a bronchiolitis as well, not visible on plain film. 4. IgA deficiency. RECOMMENDATIONS AND PLAN: We will get a CT of the chest without contrast. I have ordered a respiratory viral PCR with communicated with the lab, but we are attempting to get that done. We will continue nebulized bronchodilators, IV steroids, Mucomyst, and CPT. She has very poor veins due to chronic illness. We will get a PICC line placed and she will put on DVT prophylaxis with Lovenox. Further recommendations pending clinical course. MD LUISA Garrison/ALLA /[id number]
[2019-03-24] VITALS (8 sets, daily range): BP systolic 114–133; BP diastolic 75–97
[2019-03-24] MEDS: IPRATROPIUM BROMIDE 0.02% 2.5 ML NEB NEB SCH ×4 (01:40→20:30)
[2019-03-24] MEDS: LEVALBUTEROL HCL SOLN NEBU 1.25 MG/3 ML NEB INH PRN ×3 (01:40→20:30)
[2019-03-24 05:02] LABS: HEMATOCRIT 35.3 % (34.2-44.1); HEMOGLOBIN 12.2 g/dL (12.0-16.0); MEAN CORPUSCULAR HEMOGLOBIN 30.7 pg (28-32); MEAN CORPUSCULAR HGB CONC 34.6 g/dL (31-35); MEAN CORPUSCULAR VOLUME 88.7 fL (81-99); PLATELET COUNT 389 x10e3/uL (140-360); RED BLOOD COUNT 3.98 x10e6/uL (3.6-5.1); RED CELL DISTRIBUTION WIDTH 12.8 % (11.7-14.4)
[2019-03-24] MEDS: METHYLPREDNISOLONE SOD SUCC 40 MG/ML VIAL 1ML IV SCH ×3 (05:11→17:49)
[2019-03-24 05:22] LABS: ALANINE AMINOTRANSFERASE 12 IU/L (0-55); ALBUMIN 3.6 g/dL (3.5-5.0); ALBUMIN/GLOBULIN RATIO 1.6 (0.8-2.0); ALKALINE PHOSPHATASE 57 IU/L (40-150); ANION GAP 12.6 mmol/L (8-16); BLOOD UREA NITROGEN 13 mg/dL (7-26); BUN/CREATININE RATIO 21 (6-25); CALCIUM 8.3 mg/dL (8.4-10.2); CARBON DIOXIDE 23 mmol/L (22-29); CHLORIDE 108 mmol/L (98-107); CREATININE, SERUM 0.62 mg/dL (0.57-1.11); EST GLOMERULAR FILTRATION RATE > 60 ML/MIN (60-); GLUCOSE 158 mg/dL (74-118); MAGNESIUM 2.4 MG/DL (1.3-2.1); POTASSIUM 3.6 mmol/L (3.5-5.1); SODIUM 140 mmol/L (136-145)
[2019-03-24] MEDS ORDERED: CEFEPIME HCL 1 GM VIAL IV SCH (06:00)
[2019-03-24] MEDS ORDERED: CEFEPIME 1GM/NS 0.9% 50 ML 50 ML IV ONE (06:44)
[2019-03-24] MEDS: CEFEPIME 1GM/NS 0.9% 50 ML 50 ML IV SCH ×3 (06:48→21:35)
[2019-03-24] MEDS: ACETYLCYSTEINE 20% INHAL SOLN 30 ML VIAL INH SCH ×3 (07:05→20:30)
[2019-03-24] MEDS: SALMETEROL/FLUTICASONE 250/50 INH SCH (07:25)
[2019-03-24] MEDS: TIOTROPIUM 18 MCG INH POWDER INH SCH (07:25)
[2019-03-24] MEDS: FAMOTIDINE 20 MG/2 ML VIAL IV SCH ×2 (09:40→17:49)
[2019-03-24] MEDS: MONTELUKAST SODIUM 10 MG TAB PO SCH (09:40)
[2019-03-24] MEDS: POLYETHYLENE GLYCOL 3350 17 GM PACK PO SCH (14:56)
--- NOTE | 2019-03-24 14:57 | NUR ---
noon med given late dt system and pyxis down
[2019-03-24] MEDS: AZITHROMYCIN 500MG/NS 250 ML 250 ML IV SCH (15:39)
--- NOTE | 2019-03-24 19:00 | NUR ---
Received patient from day nurse, patient is alert and oriented x4. patient is on 4l nc. safety and fall precautions mantained as per hospital protocol: bed in lowest postion and locked, needed items beside bed and call jean baptiste placed close to patient, patient instructed to use it to call nurses for any assistance needed patient verbalized understanding.
[2019-03-25] VITALS (8 sets, daily range): BP systolic 105–143; BP diastolic 68–95
[2019-03-25] MEDS: METHYLPREDNISOLONE SOD SUCC 40 MG/ML VIAL 1ML IV SCH ×4 (00:34→17:45)
[2019-03-25] MEDS: LEVALBUTEROL HCL SOLN NEBU 1.25 MG/3 ML NEB INH PRN ×3 (02:00→13:30)
[2019-03-25] MEDS: IPRATROPIUM BROMIDE 0.02% 2.5 ML NEB NEB SCH ×4 (02:00→18:16)
[2019-03-25 05:51] LABS: BASOPHILS % 0.1 % (0.0-1.0); HEMATOCRIT 36.3 % (34.2-44.1); HEMOGLOBIN 12.3 g/dL (12.0-16.0); LYMPHOCYTES # (AUTO) 0.4 (1.0-3.2); MEAN CORPUSCULAR HEMOGLOBIN 30.2 pg (28-32); MEAN CORPUSCULAR HGB CONC 33.9 g/dL (31-35); MEAN CORPUSCULAR VOLUME 89.2 fL (81-99); MONOCYTES # (AUTO) 0.4 (0.2-0.8); MONOCYTES % 3.2 % (4.4-11.3); NEUTROPHILS # (AUTO) 11.8 (2.1-6.9); NEUTROPHILS % 93.3 % (38.7-80.0); PLATELET COUNT 411 x10e3/uL (140-360); RED BLOOD COUNT 4.07 x10e6/uL (3.6-5.1)
[2019-03-25 06:14] LABS: ALANINE AMINOTRANSFERASE 20 IU/L (0-55); ALBUMIN 3.5 g/dL (3.5-5.0); ALBUMIN/GLOBULIN RATIO 1.5 (0.8-2.0); ALKALINE PHOSPHATASE 64 IU/L (40-150); ANION GAP 13.6 mmol/L (8-16); BLOOD UREA NITROGEN 16 mg/dL (7-26); BUN/CREATININE RATIO 25 (6-25); CALCIUM 8.3 mg/dL (8.4-10.2); CARBON DIOXIDE 21 mmol/L (22-29); CHLORIDE 110 mmol/L (98-107); CREATININE, SERUM 0.63 mg/dL (0.57-1.11); EST GLOMERULAR FILTRATION RATE > 60 ML/MIN (60-); GLUCOSE 151 mg/dL (74-118); POTASSIUM 3.6 mmol/L (3.5-5.1); SODIUM 141 mmol/L (136-145)
[2019-03-25] MEDS: CEFEPIME 1GM/NS 0.9% 50 ML 50 ML IV SCH ×3 (06:29→22:55)
[2019-03-25] MEDS: ACETYLCYSTEINE 20% INHAL SOLN 30 ML VIAL INH SCH ×3 (07:15→22:00)
--- NOTE | 2019-03-25 07:21 | NUR ---
patient endorsed to next shift for continuity of care.
[2019-03-25] MEDS: TIOTROPIUM 18 MCG INH POWDER INH SCH (08:30)
[2019-03-25] MEDS: SALMETEROL/FLUTICASONE 250/50 INH SCH (08:30)
[2019-03-25] MEDS: FAMOTIDINE 20 MG/2 ML VIAL IV SCH ×2 (08:38→17:45)
[2019-03-25] MEDS: MONTELUKAST SODIUM 10 MG TAB PO SCH (08:44)
[2019-03-25] MEDS: POLYETHYLENE GLYCOL 3350 17 GM PACK PO SCH (08:44)
--- NOTE | 2019-03-25 10:13 | NUR ---
Spoke to patient, asked her for a sputum sample, patient stated, "Good luck with that." Will continue to try to ask patient to try to get a sputum sample and speak to respiratory therapy fo assistance.
--- NOTE | 2019-03-25 13:26 | NUR ---
Made rounds with Dr Pinzon. is concerned patient will need a longer time to turn around. states to discuss with attending possible LTAC. Spoke to Dr. Cunha, LTAC eval ordered. Discussed with patient, she is upset, but understanding and gives choice for [facility] area. Notified Pepito Cintron, who states she will be here soon to obtain clinicals
[2019-03-25] MEDS ORDERED: SODIUM CHLORIDE 0.9% 250ML 250 ML ONE (16:34)
[2019-03-25] MEDS: AZITHROMYCIN 500MG/NS 250 ML 250 ML IV SCH (17:19)
--- NOTE | 2019-03-25 18:55 | NUR ---
Spoke to Dr. Sotero Craig regarding new consult, Dr. Craig stated, okay, thank you.
[2019-03-25] MEDS: TRAZODONE HCL 50 MG TAB PO SCH (22:00)
[2019-03-26] VITALS (10 sets, daily range): BP systolic 111–167; BP diastolic 58–99
[2019-03-26] MEDS: IPRATROPIUM BROMIDE 0.02% 2.5 ML NEB NEB SCH ×4 (03:45→18:55)
[2019-03-26] MEDS: CEFEPIME 1GM/NS 0.9% 50 ML 50 ML IV SCH ×3 (05:40→21:12)
[2019-03-26] MEDS: METHYLPREDNISOLONE SOD SUCC 40 MG/ML VIAL 1ML IV SCH ×4 (05:40→19:05)
[2019-03-26] MEDS: ACETYLCYSTEINE 20% INHAL SOLN 30 ML VIAL INH SCH ×2 (07:00→13:35)
[2019-03-26] MEDS: LEVALBUTEROL HCL SOLN NEBU 1.25 MG/3 ML NEB INH PRN ×2 (07:00→13:35)
--- NOTE | 2019-03-26 07:09 | Progress Note ---
DATE: SUBJECTIVE: The patient is a 44-year-old with IgA deficiency, comes in with acute exacerbation of asthma. Last exacerbation was about 8 months ago. The patient is currently still short of breath, lot of audible wheezing, and the patient continues to have shortness of breath, on BiPAP at this point of time. Seen by Pulmonology too. The patient has no chest pain, no nausea, vomiting, or diarrhea, and no constipation. MEDICATIONS: She is on are cefepime q.8 hours, Solu-Medrol 40 mg q.6 hours, ipratropium nebulizers. She is taking trazodone 25 mg, Mucomyst with nebulizer, famotidine, azithromycin, and levalbuterol for nebulizer. The patient is also on montelukast, Spiriva, and Advair. OBJECTIVE: VITAL SIGNS: Temperature is 98.2, has been afebrile for the last 48 hours, pulse of 82, respirations of 18, blood pressure is 136/78, pulse oximetry of 98%. She is on a BiPAP at this time. HEENT: Normocephalic, atraumatic. The patient is cachectic. CVS: S1 and S2 normal. Regular rate and rhythm. LUNGS: Rhonchi bilaterally with multiple audible wheezes. ABDOMEN: Nontender, nondistended. EXTREMITIES: Positive for clubbing. No cyanosis. No edema. LABORATORY VALUES: Yesterday's white count is 12.59, hemoglobin of 12.3, hematocrit of 36.3, platelet count is 411, lymphocyte count is 3, neutrophil count 11.8. Microbiology status, no growth in blood cultures. IMAGING STUDIES: Show a CT scan of the chest on the shows lower lobe predominant multifocal ground-glass opacities, similar though less severe than described on 07/10/2018, concerning for multifocal pneumonia. ASSESSMENT: 1. A 44-year-old female with IgA deficiency. 2. Severe exacerbation of asthma. 3. Bronchitis, questionable bronchopneumonia versus bronchiectasis. The patient's condition is guarded. The patient has a PICC line in and continued on IV antibiotic. Blood cultures are negative. Blood work will be done again tomorrow. For now an LTAC evaluation has been ordered and is pending for transfer. We will continue to monitor the patient. Continue on respiratory therapy and also on continuous oxygen for severe hypoxemia. Further recommendation per clinical course. MD LEONOR Hector/MODL /[id number]
--- NOTE | 2019-03-26 07:22 | NUR ---
Patient condition throughout the night was stable, patient endorsed to next shift for continuity of care.
[2019-03-26] MEDS: SALMETEROL/FLUTICASONE 250/50 INH SCH (07:30)
[2019-03-26] MEDS: TIOTROPIUM 18 MCG INH POWDER INH SCH (07:30)
[2019-03-26] MEDS: MONTELUKAST SODIUM 10 MG TAB PO SCH (09:22)
[2019-03-26] MEDS: FAMOTIDINE 20 MG/2 ML VIAL IV SCH ×2 (09:23→19:05)
[2019-03-26] MEDS: POLYETHYLENE GLYCOL 3350 17 GM PACK PO SCH (09:53)
[2019-03-26] MEDS: AZITHROMYCIN 500MG/NS 250 ML 250 ML IV SCH (15:57)
[2019-03-26] MEDS ORDERED: AMLODIPINE BESYLATE 5 MG TAB PO ONE ×2 (17:30→19:30)
[2019-03-26] MEDS: TRAZODONE HCL 50 MG TAB PO SCH (21:12)
[2019-03-27] VITALS (9 sets, daily range): BP systolic 115–155; BP diastolic 71–99
[2019-03-27] MEDS: METHYLPREDNISOLONE SOD SUCC 40 MG/ML VIAL 1ML IV SCH ×5 (00:23→23:39)
[2019-03-27] MEDS: ACETYLCYSTEINE 20% INHAL SOLN 30 ML VIAL INH SCH ×4 (01:18→19:25)
[2019-03-27] MEDS: IPRATROPIUM BROMIDE 0.02% 2.5 ML NEB NEB SCH ×4 (01:47→19:25)
[2019-03-27 05:34] LABS: BASOPHILS % 0.2 % (0.0-1.0); HEMATOCRIT 35.5 % (34.2-44.1); HEMOGLOBIN 11.8 g/dL (12.0-16.0); LYMPHOCYTES # (AUTO) 0.3 (1.0-3.2); LYMPHOCYTES % 3.4 % (18.0-39.1); MEAN CORPUSCULAR HEMOGLOBIN 29.7 pg (28-32); MEAN CORPUSCULAR HGB CONC 33.2 g/dL (31-35); MEAN CORPUSCULAR VOLUME 89.4 fL (81-99); MONOCYTES # (AUTO) 0.3 (0.2-0.8); NEUTROPHILS % 92.3 % (38.7-80.0); PLATELET COUNT 358 x10e3/uL (140-360); RED BLOOD COUNT 3.97 x10e6/uL (3.6-5.1)
[2019-03-27] MEDS: CEFEPIME 1GM/NS 0.9% 50 ML 50 ML IV SCH ×3 (06:00→22:24)
[2019-03-27 06:01] LABS: ANION GAP 13.7 mmol/L (8-16); BLOOD UREA NITROGEN 15 mg/dL (7-26); BUN/CREATININE RATIO 26 (6-25); CALCIUM 8.2 mg/dL (8.4-10.2); CARBON DIOXIDE 23 mmol/L (22-29); CHLORIDE 107 mmol/L (98-107); CREATININE, SERUM 0.57 mg/dL (0.57-1.11); EST GLOMERULAR FILTRATION RATE > 60 ML/MIN (60-); GLUCOSE 135 mg/dL (74-118); POTASSIUM 3.7 mmol/L (3.5-5.1); SODIUM 140 mmol/L (136-145)
[2019-03-27] MEDS: LEVALBUTEROL HCL SOLN NEBU 1.25 MG/3 ML NEB INH PRN ×3 (07:00→19:25)
[2019-03-27] MEDS: SALMETEROL/FLUTICASONE 250/50 INH SCH (07:20)
[2019-03-27] MEDS: TIOTROPIUM 18 MCG INH POWDER INH SCH (07:20)
[2019-03-27] MEDS: POLYETHYLENE GLYCOL 3350 17 GM PACK PO SCH (07:35)
[2019-03-27] MEDS: FAMOTIDINE 20 MG/2 ML VIAL IV SCH ×2 (07:35→16:35)
[2019-03-27] MEDS: MONTELUKAST SODIUM 10 MG TAB PO SCH (07:35)
[2019-03-27] MEDS: AMLODIPINE BESYLATE 5 MG TAB PO SCH (07:35)
--- NOTE | 2019-03-27 08:09 | Progress Note ---
DATE: SUBJECTIVE: The patient is a 44-year-old female has acute asthma exacerbation, pneumonia. Yesterday, she was in BiPAP throughout the day, seen by automotive glass mechanic. No complaints except for blood pressure being little high, amlodipine 2.5 mg was started. The patient otherwise has no complaints. OBJECTIVE: VITAL SIGNS: Temperature is 99.7, T-max is 99.7, pulse is 78, respirations of 20, blood pressure is 115/75. HEENT: Normocephalic, atraumatic. Pupils are reactive. CVS: S1 and S2 normal. Regular rate and rhythm. LUNGS: Bilateral rhonchi and audible wheezes present. ABDOMEN: Nontender, nondistended. EXTREMITIES: No clubbing, no cyanosis, no edema. LABORATORY VALUES: White count is 9.79, hemoglobin 11.8, neutrophil count is 92.3. Chemistries; sodium 140, potassium 3.7, BUN 15, creatinine 0.57, glucose 135, calcium is 8.2. MICROBIOLOGY: No growth in the last 72 hours. Virus serology still pending. ASSESSMENT: 1. Ms. Amalia Mendoza is a 44-year-old with IgA deficiency. 2. Severe exacerbation of asthma. 3. Bronchitis versus pneumonia versus bronchiectasis. PLAN: Continue with Solu-Medrol. Continue with IV antibiotic. She is on BiPAP 24 hours. CBC and CMP are stable. Transfer to LTAC is on order. Further recommendation per clinical course. We will continue to monitor the patient. Thank you along with consultants. MD LEONOR Hector/ALLA /[id number]
--- NOTE | 2019-03-27 13:45 | NUR ---
Visit made by the Spiritual Care Department Pastoral Visitor, Eddie Proctor. Pt unavailable at this time. Pt's nurse performing procedure bedside. IGNACIO HURST Cis Coordinator Spiritual Care Department O: [phone] Pager: [phone] ([phone] number calling from)
[2019-03-27] MEDS: AZITHROMYCIN 500MG/NS 250 ML 250 ML IV SCH (16:35)
[2019-03-27] MEDS ORDERED: BISACODYL 5 MG TAB EC PO ONE (20:00)
[2019-03-27] MEDS: TRAZODONE HCL 50 MG TAB PO SCH (22:24)
[2019-03-28] VITALS (9 sets, daily range): BP systolic 119–154; BP diastolic 71–99
[2019-03-28] MEDS: LEVALBUTEROL HCL SOLN NEBU 1.25 MG/3 ML NEB INH PRN ×3 (01:15→19:50)
[2019-03-28] MEDS: IPRATROPIUM BROMIDE 0.02% 2.5 ML NEB NEB SCH ×4 (01:15→19:50)
--- NOTE | 2019-03-28 01:48 | NUR ---
Pulmonary Medicine --Dr Pinzon coverage Date 03/27/2019 SUBJECTIVE: 2 l/MIN oxygen at times Intermittent BiPAP for rescue still being used Intermittent vest CPT being used Lots of residual airway secretions evident REVIEW OF SYSTEMS: No bleeding, no rash PHYSICAL EXAMINATION: VITAL SIGNS: Noted and reviewed per medical record GENERAL APPEARANCE: Difficult speaking full sentences. Secondary breathing muscles leveraged HEENT: normocephalic, atraumatic. NECK: Supple. Trachea midline. LUNGS: bilateral wheezes, moderate to large rhonchi. HEART: Regular rate and rhythm. No murmurs, rubs, or gallops. ABDOMEN: Soft, nontender. EXTREMITIES: no cyanosis, clubbing, or edema. LABORATORY DATA: 3.7 k, cr 0.6. wc 1. 35 hct. ASSESSMENT: 1. Respiratory distress with hypoxemic respiratory failure, [id number]. 2. Asthma with acute exacerbation/status asthmaticus. 3. Acute bronchitis/bronchiolitis . 4. IgA deficiency. RECOMMENDATIONS AND PLAN: Follow up all microbiology, respiratory viral PCR if feasible Continue nebulized bronchodilators, IV steroids, Mucomyst, and CPT. BiPAP for rescue continue Mobilize DVT prophylaxis with Lovenox. LTAC referral Thank you Dr Flores/Guerline.
[2019-03-28] MEDS: METHYLPREDNISOLONE SOD SUCC 40 MG/ML VIAL 1ML IV SCH ×3 (05:37→16:58)
[2019-03-28] MEDS: CEFEPIME 1GM/NS 0.9% 50 ML 50 ML IV SCH ×3 (05:37→22:00)
[2019-03-28] MEDS: ACETYLCYSTEINE 20% INHAL SOLN 30 ML VIAL INH SCH ×3 (07:10→19:50)
[2019-03-28] MEDS: SALMETEROL/FLUTICASONE 250/50 INH SCH (07:35)
[2019-03-28] MEDS: TIOTROPIUM 18 MCG INH POWDER INH SCH (07:36)
[2019-03-28] MEDS: FAMOTIDINE 20 MG/2 ML VIAL IV SCH ×2 (08:08→16:57)
[2019-03-28] MEDS: POLYETHYLENE GLYCOL 3350 17 GM PACK PO SCH (08:08)
[2019-03-28] MEDS: MONTELUKAST SODIUM 10 MG TAB PO SCH (08:08)
[2019-03-28] MEDS: AMLODIPINE BESYLATE 5 MG TAB PO SCH (08:08)
[2019-03-28] MEDS: AZITHROMYCIN 500MG/NS 250 ML 250 ML IV SCH (16:57)
--- NOTE | 2019-03-28 18:08 | NUR ---
Nutrition Intervention Note RD Recommendation(s) for Physician: -Continue regular diet -Ensure clear with meals Plan of Care: RD following, monitoring for tolerance and adequacy Nutrition reason for involvement: Length of stay RD Assessment: (03/28/19) Pt is a 44 year old female admitted with asthma with exacerbation and upper respiratory infection. Pt stated she usually only consumes about 50% of her meals ( > 1 month) and drinks Ensure clear 3-4x/day. No wt loss reported and pt stated she usually weighs 100 lbs. However, pt currently has a wt of 108 lbs in chart. No chewing/swallowing issues and no N/V/D/C reported. Principal Problems/Diagnoses: asthma with exacerbation and upper respiratory infection. PMH: persistent asthma, chronic hypoxemic respiratory failure, Iga deficiency I/O: 1180/- GI: flat, soft, non-tender abdomen Skin: no pressure ulcers Labs: (03/28) Glu 135, Ca 8.2 Meds: (03/28) methylprednisolone, miralax, pepcid, azithromycin Ht: 62 inches Wt: 108 lbs BMI: 19.8 kg/m2 IBW: 110 lbs Malnutrition Evaluation (03/28/19) The patient does not meet criteria for a specified degree of malnutrition at this time. Will re-evaluate at follow-up as appropriate. Nutrition Prescription (Diet Order): Regular diet Estimated Nutritional Needs: 9224-4829 calories/day (25-35 kcal/kg CBW) 49-74 g protein/day (1-1.5 g pro/kg CBW) Diet Adequacy: Not meeting calorie needs, Not meeting protein needs Tolerance: Tolerating PO Diet Education Needs Assessment: Diet education not indicated; patient on regular diet. Nutrition Care Level: low Nutrition Diagnosis: Inadequate energy intake related to decreased ability to consume sufficient energy secondary to decreased appetite as evidenced by pt reports consuming 50% of meals for >1 month. Goal: Patient will meet 75-100% of estimated needs by follow up Progress: N/A Interventions: -General healthful diet, Commercial beverage Monitoring/Evaluation: -Total energy intake, Total protein intake, Formula, Liquid supplement, Weight change Signed: Thu Prajapati RD, DESTINEY
[2019-03-28] MEDS: TRAZODONE HCL 50 MG TAB PO SCH (21:00)
--- NOTE | 2019-03-28 23:16 | NUR ---
Pulmonary Medicine --Dr Pinzon coverage Date 03/28/2019 SUBJECTIVE: 2 l/MIN oxygen at times Intermittent BiPAP again Intermittent vest CPT Lots of residual airway secretions evident, slightly better though eating well REVIEW OF SYSTEMS: No bleeding, no rash PHYSICAL EXAMINATION: VITAL SIGNS: Noted and reviewed per medical record GENERAL APPEARANCE: Better color. Secondary breathing muscles leveraged HEENT: normocephalic, atraumatic. NECK: Supple. Trachea midline. LUNGS: bilateral wheezes, moderate to large rhonchi. HEART: Regular rate and rhythm. No murmurs, rubs, or gallops. ABDOMEN: Soft, nontender. EXTREMITIES: no cyanosis, clubbing, or edema. LABORATORY DATA: 3.7 k, cr .57. ASSESSMENT: 1. Respiratory distress with hypoxemic respiratory failure, [id number]. 2. Asthma with acute exacerbation/status asthmaticus. 3. Acute bronchitis/bronchiolitis . 4. IgA deficiency. RECOMMENDATIONS AND PLAN: Follow up all microbiology, respiratory viral PCR if feasible Continue nebulized bronchodilators, IV steroids, Mucomyst, and CPT. -consider weaning steroids tomorrow Intermittent BiPAP for rescue continue Mobilize DVT prophylaxis with Lovenox. LTAC referral Thank you Dr Flores/Guerline.
[2019-03-29] VITALS: BP 129/82
[2019-03-29] MEDS: METHYLPREDNISOLONE SOD SUCC 40 MG/ML VIAL 1ML IV SCH ×3 (00:09→12:03)
[2019-03-29] MEDS: IPRATROPIUM BROMIDE 0.02% 2.5 ML NEB NEB SCH ×2 (00:52→07:26)
[2019-03-29 04:00] VITALS: BP 158/94
[2019-03-29] MEDS: CEFEPIME 1GM/NS 0.9% 50 ML 50 ML IV SCH (05:48)
[2019-03-29 07:00] VITALS: BP 138/73
--- NOTE | 2019-03-29 07:00 | NUR ---
BEDSIDE SHIFT REPORT RECEIVED PT IN STABLE CONDITION, BIPAP IN PLACE, DENIES PAIN AT THIS TIME, UPDATED ON POC VOICED UNDERSTANDING, CALL LIGHT IN REACH WILL CONTINUE TO MONTIOR
[2019-03-29] MEDS: LEVALBUTEROL HCL SOLN NEBU 1.25 MG/3 ML NEB INH PRN (07:26)
[2019-03-29] MEDS: ACETYLCYSTEINE 20% INHAL SOLN 30 ML VIAL INH SCH (07:26)
[2019-03-29] MEDS: SALMETEROL/FLUTICASONE 250/50 INH SCH (07:54)
[2019-03-29] MEDS: TIOTROPIUM 18 MCG INH POWDER INH SCH (07:54)
[2019-03-29] MEDS: FAMOTIDINE 20 MG/2 ML VIAL IV SCH (08:30)
[2019-03-29] MEDS: POLYETHYLENE GLYCOL 3350 17 GM PACK PO SCH (08:30)
[2019-03-29] MEDS: AMLODIPINE BESYLATE 5 MG TAB PO SCH (08:30)
[2019-03-29] MEDS: MONTELUKAST SODIUM 10 MG TAB PO SCH (08:30)
[2019-03-29 08:55] VITALS: BP 138/73
--- NOTE | 2019-03-29 11:15 | NUR ---
report given to john morales at [facility], mot given to racquel suppervisor awaiting transport
[2019-03-29 12:05] VITALS: BP 133/93
--- NOTE | 2019-03-29 21:28 | NUR ---
Pulmonary Medicine --Dr Pinzon coverage Date 03/29/2019 SUBJECTIVE: 2 l/MIN oxygen at times Intermittent BiPAP again Intermittent vest CPT still with residual airway secretions evident eating well REVIEW OF SYSTEMS: No bleeding, no rash PHYSICAL EXAMINATION: VITAL SIGNS: Noted and reviewed per medical record GENERAL APPEARANCE: Better color. Secondary breathing muscles leveraged HEENT: normocephalic, atraumatic. NECK: Supple. Trachea midline. LUNGS: few bilateral wheezes, moderate to large rhonchi. HEART: Regular rate and rhythm. No murmurs, rubs, or gallops. ABDOMEN: Soft, nontender. EXTREMITIES: no cyanosis, clubbing, or edema. LABORATORY DATA: per EMR ASSESSMENT: 1. Respiratory distress with hypoxemic respiratory failure, [id number]. 2. Asthma with acute exacerbation/status asthmaticus. 3. Acute bronchitis/bronchiolitis . 4. superimposed pneumonia, CAP 5. IgA deficiency. RECOMMENDATIONS AND PLAN: Follow up all microbiology, respiratory viral PCR if feasible Continue nebulized bronchodilators, IV steroids, Mucomyst, and CPT. - weaning steroids tomorrow Intermittent BiPAP for rescue continue Mobilize DVT prophylaxis with Lovenox. LTAC transfer today Thank you Dr Flores/Guerline.
--- NOTE | 2019-03-30 05:48 | Discharge Summary ---
DISCHARGE DIAGNOSES: 1. Pneumonia. 2. IgA deficiency. 3. Severe asthmatic bronchitis. 4. Severe asthma. 5. Hypertension. HISTORY OF PRESENT ILLNESS AND HOSPITAL COURSE: See hospital chart for full details. The patient is a lady, who is disabled secondary to severe IgA deficiency and severe asthma, who presented with cough, congestion, low-grade fever where she was found on CT scan to have multifocal pneumonia, where, she was then brought in and placed on IV antibiotics, O2, BiPAP, nebulizer, continuation of her vest. She was seen by her maid supervisor, Dr. Pinzon. As usual, the patient has very slow progress when it comes to her lung disease, so she was then transferred over to [facility] with continuation of her medications, where she has made some slow improvement. Please see hospital chart for full details. MD JAIRO Garza/ALLA /[id number]
== END 2019-03-29 13:51 | DRG 871 ==
LOC: ER 14:49 → ERHOLD 15:43 → IMCU 20:45
PROVIDERS: ADMIT Internal Medicine; ATTEND Internal Medicine
PROC: 02HV33Z Insertion of Infusion Device into Superior Vena Cava, Percutaneous Approach (ICD-10-PCS; principal; 2019-03-23)
PROC: B548ZZA Ultrasonography of Superior Vena Cava, Guidance (ICD-10-PCS; 2019-03-23)
PROC: 5A09357 Assistance with Respiratory Ventilation, Less than 24 Consecutive Hours, Continuous Positive Airway Pressure (ICD-10-PCS; 2019-03-23)
DX: A41.9 Sepsis, unspecified organism (principal); J18.1 Lobar pneumonia, unspecified organism; J96.21 Acute and chronic respiratory failure with hypoxia; D80.2 Selective deficiency of immunoglobulin A [IgA]; J45.902 Unspecified asthma with status asthmaticus; J44.0 Chronic obstructive pulmonary disease with (acute) lower respiratory infection; I10 Essential (primary) hypertension; K21.9 Gastro-esophageal reflux disease without esophagitis
CPT/HCPCS: 36415; 36569; 71045; 71250; 80048; 80053; 81001; 82550; 82553; 83735; 83880; 84443; 84484; 85007; 85025; 85027; 87040; 87299; 87400; 93005; 94640; 94660; 94664; 94667; 94668; 97139; 99285; J0456; J0692; J0696; J1100; J2920; J2930; J3475; J7030; J7050

== ENCOUNTER 2021-12-17 08:39 | Inpatient (IN) | payer BC ==
[~2021-12-17] VITALS: Ht 157.5 cm; Wt 45.8 kg
[2021-12-17] MEDS ORDERED: LEVOFLOXACIN 750MG/D5W 150ML 150 ML IV STA (08:53)
[2021-12-17] MEDS ORDERED: SODIUM CHLORIDE 0.9% IV SCH (09:00)
[2021-12-17 09:20] LABS: BASOPHILS % 0.3 % (0.0-1.0); EOSINOPHILS # (AUTO) 0.1 (0.0-0.4); EOSINOPHILS % 0.7 % (0.0-6.0); HEMATOCRIT 49.4 % (34.2-44.1); HEMOGLOBIN 17.6 g/dL (12.0-16.0); LYMPHOCYTES # (AUTO) 1.5 (1.0-3.2); MEAN CORPUSCULAR HEMOGLOBIN 30.7 pg (28-32); MEAN CORPUSCULAR HGB CONC 35.6 g/dL (31-35); MEAN CORPUSCULAR VOLUME 86.2 fL (81-99); MONOCYTES # (AUTO) 0.7 (0.2-0.8); MONOCYTES % 6.4 % (4.4-11.3); NEUTROPHILS # (AUTO) 8.3 (2.1-6.9); NEUTROPHILS % 78.3 % (38.7-80.0); PLATELET COUNT 310 x10e3/uL (140-360); RED BLOOD COUNT 5.73 x10e6/uL (3.6-5.1); RED CELL DISTRIBUTION WIDTH 12.3 % (11.7-14.4)
[2021-12-17 10:03] LABS: INR 0.8; PARTIAL THROMBOPLASTIN TIME 24.8 seconds (23.8-35.5); PROTHROMBIN TIME 11.8 seconds (11.9-14.5)
[2021-12-17 10:08] LABS: ALANINE AMINOTRANSFERASE 22 IU/L (0-55); ALBUMIN 4.9 g/dL (3.5-5.0); ALBUMIN/GLOBULIN RATIO 1.4 (0.8-2.0); ALKALINE PHOSPHATASE 74 IU/L (40-150); ANION GAP 20.9 mmol/L (8-16); BLOOD UREA NITROGEN 13 mg/dL (7-26); BUN/CREATININE RATIO 14 (6-25); CALCIUM 9.6 mg/dL (8.4-10.2); CARBON DIOXIDE 19 mmol/L (22-29); CHLORIDE 100 mmol/L (98-107); GLUCOSE 120 mg/dL (74-118); SODIUM 137 mmol/L (136-145)
[2021-12-17 10:14] LABS: POTASSIUM 2.9 mmol/L (3.5-5.1)
[2021-12-17] MEDS ORDERED: POTASSIUM CHLORIDE 20MEQ/100ML 200 ML IV ONE (11:30)
[2021-12-17] MEDS ORDERED: IOPAMIDOL 370 MG/ML 100 ML INFUS..BTL INJ ONE (11:31)
[2021-12-17] MEDS ORDERED: SODIUM CHLORIDE 0.9% 1000ML 1,000 ML IV SCH (12:15)
[2021-12-17] MEDS ORDERED: ONDANSETRON HCL INJ 2MG/ML 2ML 2 MG/ML VIAL IV PRN ×2 (12:15→15:15)
[2021-12-17 13:46] LABS: CLARITY,URINE CLEAR (CLEAR); COLOR,URINE YELLOW (YELLOW); KETONES,URINE NEGATIVE (NEGATIVE); LEUKOCYTE ESTERASE ,URINE TRACE (NEGATIVE); NITRITE,URINE NEGATIVE (NEGATIVE); PROTEIN,URINE DIPSTICK NEGATIVE (NEGATIVE); URINE UROBILINOGEN 0.2 mg/dL (0.2 - 1)
[2021-12-17 14:01] LABS: BACTERIA,URINE FEW /HPF; EPITHELIAL CELLS,URINE FEW /LPF; RBC,URINE 0-5 /HPF (0-5)
[2021-12-17] MEDS ORDERED: ACETAMINOPHEN 325 MG TAB PO PRN (15:15)
[2021-12-17] MEDS ORDERED: POTASSIUM CHLORIDE 20 MEQ TAB CR PO STA (15:17)
[2021-12-17] MEDS ORDERED: METHYLPREDNISOLONE SOD SUCC 125 MG/2ML VIAL IV SCH (15:20)
[2021-12-17] MEDS: LEVALBUTEROL HCL SOLN NEBU 1.25 MG/3 ML NEB INH SCH ×3 (15:32→23:05)
[2021-12-17] MEDS: ACETYLCYSTEINE 200 MG/ML 4ML VIAL INH SCH ×2 (15:32→19:10)
[2021-12-17] MEDS: METHYLPREDNISOLONE SOD SUCC 125 MG/2ML VIAL IV SCH ×2 (15:32→22:08)
[2021-12-17] MEDS ORDERED: REMDESIVIR 200MG 200 MG in SODIUM CHLORIDE 0.9% 100 ML IV ONE (16:00)
[2021-12-17 20:00] VITALS: BP 113/84
[2021-12-17 21:00] VITALS: BP 110/75
[2021-12-17 22:00] VITALS: BP 111/65
[2021-12-17 23:00] VITALS: BP 115/88
[2021-12-18] VITALS (15 sets, daily range): BP systolic 110–165; BP diastolic 71–92
[2021-12-18] MEDS: LEVALBUTEROL HCL SOLN NEBU 1.25 MG/3 ML NEB INH SCH ×6 (03:05→22:30)
[2021-12-18] MEDS: TIOTROPIUM 18 MCG INH POWDER INH SCH (06:27)
[2021-12-18] MEDS: ACETYLCYSTEINE 200 MG/ML 4ML VIAL INH SCH ×2 (07:15→19:30)
[2021-12-18 08:14] LABS: HEMATOCRIT 43.9 % (34.2-44.1); HEMOGLOBIN 14.8 g/dL (12.0-16.0); LYMPHOCYTES # (AUTO) 0.3 (1.0-3.2); MEAN CORPUSCULAR HEMOGLOBIN 30.5 pg (28-32); MEAN CORPUSCULAR HGB CONC 33.7 g/dL (31-35); MEAN CORPUSCULAR VOLUME 90.3 fL (81-99); MONOCYTES % 1.5 % (4.4-11.3); NEUTROPHILS # (AUTO) 2.4 (2.1-6.9); NEUTROPHILS % 87.1 % (38.7-80.0); PLATELET COUNT 246 x10e3/uL (140-360); RED BLOOD COUNT 4.86 x10e6/uL (3.6-5.1); RED CELL DISTRIBUTION WIDTH 12.9 % (11.7-14.4)
[2021-12-18 08:33] LABS: ALBUMIN/GLOBULIN RATIO 1.2 (0.8-2.0); ANION GAP 17.4 mmol/L (8-16); CALCIUM 8.1 mg/dL (8.4-10.2); CREATININE, SERUM 0.65 mg/dL (0.57-1.11); POTASSIUM 4.4 mmol/L (3.5-5.1)
[2021-12-18 08:39] LABS: ALBUMIN 3.8 g/dL (3.5-5.0)
[2021-12-18] MEDS: MONTELUKAST SODIUM 10 MG TAB PO SCH (09:31)
[2021-12-18] MEDS: METHYLPREDNISOLONE SOD SUCC 125 MG/2ML VIAL IV SCH ×2 (09:31→20:37)
[2021-12-18] MEDS: LEVOFLOXACIN 500MG/D5W 100ML 100 ML IV SCH (12:31)
[2021-12-18] MEDS: REMDESIVIR 100MG 100 MG in SODIUM CHLORIDE 0.9% 100 ML IV SCH (14:12)
[2021-12-19] VITALS (22 sets, daily range): BP systolic 119–158; BP diastolic 70–94
[2021-12-19] MEDS: LEVALBUTEROL HCL SOLN NEBU 1.25 MG/3 ML NEB INH SCH ×6 (02:30→22:30)
[2021-12-19] MEDS: ACETYLCYSTEINE 200 MG/ML 4ML VIAL INH SCH ×2 (06:45→19:40)
[2021-12-19 06:50] LABS: BASOPHILS % 0.1 % (0.0-1.0); HEMATOCRIT 37.6 % (34.2-44.1); HEMOGLOBIN 13.2 g/dL (12.0-16.0); LYMPHOCYTES # (AUTO) 0.4 (1.0-3.2); LYMPHOCYTES % 2.5 % (18.0-39.1); MEAN CORPUSCULAR HEMOGLOBIN 30.8 pg (28-32); MEAN CORPUSCULAR HGB CONC 35.1 g/dL (31-35); MEAN CORPUSCULAR VOLUME 87.9 fL (81-99); MONOCYTES # (AUTO) 0.3 (0.2-0.8); NEUTROPHILS # (AUTO) 13.7 (2.1-6.9); NEUTROPHILS % 94.8 % (38.7-80.0); PLATELET COUNT 263 x10e3/uL (140-360); RED BLOOD COUNT 4.28 x10e6/uL (3.6-5.1); RED CELL DISTRIBUTION WIDTH 12.9 % (11.7-14.4)
[2021-12-19] MEDS: TIOTROPIUM 18 MCG INH POWDER INH SCH (06:59)
[2021-12-19 07:13] LABS: ALBUMIN 3.5 g/dL (3.5-5.0); ALBUMIN/GLOBULIN RATIO 1.1 (0.8-2.0); ANION GAP 14.8 mmol/L (8-16); CREATININE, SERUM 0.61 mg/dL (0.57-1.11); POTASSIUM 3.8 mmol/L (3.5-5.1)
[2021-12-19] MEDS: MONTELUKAST SODIUM 10 MG TAB PO SCH (09:31)
[2021-12-19] MEDS: METHYLPREDNISOLONE SOD SUCC 125 MG/2ML VIAL IV SCH ×2 (09:31→21:03)
[2021-12-19] MEDS: LEVOFLOXACIN 500MG/D5W 100ML 100 ML IV SCH (11:16)
[2021-12-19] MEDS: REMDESIVIR 100MG 100 MG in SODIUM CHLORIDE 0.9% 100 ML IV SCH (13:19)
[2021-12-19] MEDS: ENOXAPARIN SOD INJ 40 MG/0.4 ML SYR SC SCH (21:03)
[2021-12-20] VITALS (24 sets, daily range): BP systolic 120–160; BP diastolic 71–111
[2021-12-20] MEDS: LEVALBUTEROL HCL SOLN NEBU 1.25 MG/3 ML NEB INH SCH ×6 (03:50→23:35)
[2021-12-20 07:09] LABS: BASOPHILS % 0.1 % (0.0-1.0); HEMATOCRIT 36.3 % (34.2-44.1); HEMOGLOBIN 12.7 g/dL (12.0-16.0); LYMPHOCYTES # (AUTO) 0.3 (1.0-3.2); LYMPHOCYTES % 2.1 % (18.0-39.1); MEAN CORPUSCULAR HEMOGLOBIN 30.8 pg (28-32); MEAN CORPUSCULAR VOLUME 88.1 fL (81-99); MONOCYTES # (AUTO) 0.3 (0.2-0.8); MONOCYTES % 2.6 % (4.4-11.3); NEUTROPHILS # (AUTO) 12.4 (2.1-6.9); NEUTROPHILS % 94.8 % (38.7-80.0); PLATELET COUNT 240 x10e3/uL (140-360); RED BLOOD COUNT 4.12 x10e6/uL (3.6-5.1); RED CELL DISTRIBUTION WIDTH 12.8 % (11.7-14.4)
[2021-12-20 07:32] LABS: ALBUMIN 3.4 g/dL (3.5-5.0); ALBUMIN/GLOBULIN RATIO 1.4 (0.8-2.0); ANION GAP 14.1 mmol/L (8-16); CREATININE, SERUM 0.55 mg/dL (0.57-1.11); POTASSIUM 3.1 mmol/L (3.5-5.1)
[2021-12-20] MEDS: ACETYLCYSTEINE 200 MG/ML 4ML VIAL INH SCH ×3 (07:35→20:23)
[2021-12-20] MEDS: TIOTROPIUM 18 MCG INH POWDER INH SCH (07:40)
[2021-12-20] MEDS ORDERED: POTASSIUM CHLORIDE 20 MEQ TAB CR PO ONE (08:30)
[2021-12-20] MEDS: MONTELUKAST SODIUM 10 MG TAB PO SCH (08:44)
[2021-12-20] MEDS: METHYLPREDNISOLONE SOD SUCC 125 MG/2ML VIAL IV SCH ×2 (08:44→20:18)
[2021-12-20] MEDS: ENOXAPARIN SOD INJ 40 MG/0.4 ML SYR SC SCH ×2 (08:45→20:19)
[2021-12-20] MEDS: LEVOFLOXACIN 500MG/D5W 100ML 100 ML IV SCH (11:05)
[2021-12-20] MEDS: REMDESIVIR 100MG 100 MG in SODIUM CHLORIDE 0.9% 100 ML IV SCH (13:17)
[2021-12-21] VITALS (24 sets, daily range): BP systolic 113–162; BP diastolic 68–97
[2021-12-21] MEDS: LEVALBUTEROL HCL SOLN NEBU 1.25 MG/3 ML NEB INH SCH ×6 (02:30→22:55)
[2021-12-21 06:33] LABS: HEMATOCRIT 36.8 % (34.2-44.1); HEMOGLOBIN 12.7 g/dL (12.0-16.0); LYMPHOCYTES # (AUTO) 0.3 (1.0-3.2); LYMPHOCYTES % 2.8 % (18.0-39.1); MEAN CORPUSCULAR HEMOGLOBIN 30.8 pg (28-32); MEAN CORPUSCULAR HGB CONC 34.5 g/dL (31-35); MEAN CORPUSCULAR VOLUME 89.3 fL (81-99); MONOCYTES # (AUTO) 0.4 (0.2-0.8); NEUTROPHILS # (AUTO) 10.3 (2.1-6.9); NEUTROPHILS % 92.9 % (38.7-80.0); PLATELET COUNT 232 x10e3/uL (140-360); RED BLOOD COUNT 4.12 x10e6/uL (3.6-5.1); RED CELL DISTRIBUTION WIDTH 12.9 % (11.7-14.4)
[2021-12-21 06:55] LABS: ALBUMIN 3.3 g/dL (3.5-5.0); ALBUMIN/GLOBULIN RATIO 1.4 (0.8-2.0); ANION GAP 14.3 mmol/L (8-16); CALCIUM 7.6 mg/dL (8.4-10.2); CREATININE, SERUM 0.55 mg/dL (0.57-1.11); POTASSIUM 3.3 mmol/L (3.5-5.1)
[2021-12-21] MEDS: ENOXAPARIN SOD INJ 40 MG/0.4 ML SYR SC SCH ×2 (08:52→20:03)
[2021-12-21] MEDS: MONTELUKAST SODIUM 10 MG TAB PO SCH (08:52)
[2021-12-21] MEDS: METHYLPREDNISOLONE SOD SUCC 125 MG/2ML VIAL IV SCH ×2 (08:52→20:03)
[2021-12-21] MEDS ORDERED: POTASSIUM CHLORIDE 20 MEQ TAB CR PO STA (08:54)
[2021-12-21] MEDS: ACETYLCYSTEINE 200 MG/ML 4ML VIAL INH SCH ×2 (11:07→19:25)
[2021-12-21] MEDS: TIOTROPIUM 18 MCG INH POWDER INH SCH (11:07)
[2021-12-21] MEDS: LEVOFLOXACIN 500MG/D5W 100ML 100 ML IV SCH (12:00)
[2021-12-21] MEDS: REMDESIVIR 100MG 100 MG in SODIUM CHLORIDE 0.9% 100 ML IV SCH (13:01)
[2021-12-21] MEDS ORDERED: POTASSIUM CHLORIDE 20 MEQ TAB CR PO ONE (18:00)
[2021-12-22] VITALS (18 sets, daily range): BP systolic 115–160; BP diastolic 73–100
[2021-12-22] MEDS: LEVALBUTEROL HCL SOLN NEBU 1.25 MG/3 ML NEB INH SCH ×6 (02:55→23:20)
[2021-12-22 06:52] LABS: BASOPHILS % 0.1 % (0.0-1.0); HEMATOCRIT 37.7 % (34.2-44.1); HEMOGLOBIN 12.7 g/dL (12.0-16.0); LYMPHOCYTES # (AUTO) 0.6 (1.0-3.2); MEAN CORPUSCULAR HEMOGLOBIN 30.4 pg (28-32); MEAN CORPUSCULAR HGB CONC 33.7 g/dL (31-35); MEAN CORPUSCULAR VOLUME 90.2 fL (81-99); MONOCYTES # (AUTO) 0.5 (0.2-0.8); MONOCYTES % 4.1 % (4.4-11.3); NEUTROPHILS % 90.3 % (38.7-80.0); PLATELET COUNT 240 x10e3/uL (140-360); RED BLOOD COUNT 4.18 x10e6/uL (3.6-5.1); RED CELL DISTRIBUTION WIDTH 12.9 % (11.7-14.4)
[2021-12-22 07:28] LABS: ALBUMIN 3.3 g/dL (3.5-5.0); ALBUMIN/GLOBULIN RATIO 1.4 (0.8-2.0); CALCIUM 7.8 mg/dL (8.4-10.2); CREATININE, SERUM 0.52 mg/dL (0.57-1.11)
[2021-12-22] MEDS: ENOXAPARIN SOD INJ 40 MG/0.4 ML SYR SC SCH ×2 (08:54→20:20)
[2021-12-22] MEDS: METHYLPREDNISOLONE SOD SUCC 125 MG/2ML VIAL IV SCH ×2 (08:54→20:19)
[2021-12-22] MEDS: MONTELUKAST SODIUM 10 MG TAB PO SCH (08:54)
[2021-12-22] MEDS: ACETYLCYSTEINE 200 MG/ML 4ML VIAL INH SCH ×2 (11:06→19:50)
[2021-12-22] MEDS: TIOTROPIUM 18 MCG INH POWDER INH SCH (11:06)
[2021-12-22] MEDS: LEVOFLOXACIN 500MG/D5W 100ML 100 ML IV SCH (13:14)
[2021-12-23] VITALS (22 sets, daily range): BP systolic 109–155; BP diastolic 68–117
[2021-12-23] MEDS: LEVALBUTEROL HCL SOLN NEBU 1.25 MG/3 ML NEB INH SCH ×5 (00:06→19:14)
[2021-12-23] MEDS: ACETYLCYSTEINE 200 MG/ML 4ML VIAL INH SCH ×2 (07:15→19:10)
[2021-12-23] MEDS: TIOTROPIUM 18 MCG INH POWDER INH SCH (07:45)
[2021-12-23] MEDS: METHYLPREDNISOLONE SOD SUCC 125 MG/2ML VIAL IV SCH ×2 (08:07→20:40)
[2021-12-23] MEDS: ENOXAPARIN SOD INJ 40 MG/0.4 ML SYR SC SCH ×2 (08:07→20:40)
[2021-12-23] MEDS: MONTELUKAST SODIUM 10 MG TAB PO SCH (08:08)
[2021-12-23] MEDS: LEVOFLOXACIN 500MG/D5W 100ML 100 ML IV SCH (11:14)
[2021-12-24] VITALS (12 sets, daily range): BP systolic 97–149; BP diastolic 53–95
[2021-12-24] MEDS: LEVALBUTEROL HCL SOLN NEBU 1.25 MG/3 ML NEB INH SCH ×6 (03:55→23:15)
[2021-12-24 06:18] LABS: BASOPHILS % 0.2 % (0.0-1.0); HEMATOCRIT 39.4 % (34.2-44.1); HEMOGLOBIN 13.6 g/dL (12.0-16.0); LYMPHOCYTES # (AUTO) 1.1 (1.0-3.2); LYMPHOCYTES % 8.6 % (18.0-39.1); MEAN CORPUSCULAR HEMOGLOBIN 30.6 pg (28-32); MEAN CORPUSCULAR HGB CONC 34.5 g/dL (31-35); MEAN CORPUSCULAR VOLUME 88.7 fL (81-99); MONOCYTES # (AUTO) 0.9 (0.2-0.8); MONOCYTES % 7.1 % (4.4-11.3); NEUTROPHILS # (AUTO) 10.5 (2.1-6.9); NEUTROPHILS % 82.2 % (38.7-80.0); PLATELET COUNT 301 x10e3/uL (140-360); RED BLOOD COUNT 4.44 x10e6/uL (3.6-5.1); RED CELL DISTRIBUTION WIDTH 13.1 % (11.7-14.4)
[2021-12-24 06:45] LABS: ALBUMIN 3.4 g/dL (3.5-5.0); ALBUMIN/GLOBULIN RATIO 1.5 (0.8-2.0); ANION GAP 13.6 mmol/L (8-16); CALCIUM 7.8 mg/dL (8.4-10.2); CREATININE, SERUM 0.57 mg/dL (0.57-1.11); MAGNESIUM 2.2 MG/DL (1.3-2.1); POTASSIUM 3.6 mmol/L (3.5-5.1)
[2021-12-24] MEDS: ACETYLCYSTEINE 200 MG/ML 4ML VIAL INH SCH ×2 (07:00→19:50)
[2021-12-24] MEDS: METHYLPREDNISOLONE SOD SUCC 125 MG/2ML VIAL IV SCH ×2 (09:03→21:00)
[2021-12-24] MEDS: MONTELUKAST SODIUM 10 MG TAB PO SCH (09:03)
[2021-12-24] MEDS: ENOXAPARIN SOD INJ 40 MG/0.4 ML SYR SC SCH ×2 (09:03→21:01)
[2021-12-24] MEDS: TIOTROPIUM 18 MCG INH POWDER INH SCH (11:00)
[2021-12-24] MEDS: LEVOFLOXACIN 500MG/D5W 100ML 100 ML IV SCH (13:42)
[2021-12-25] VITALS (16 sets, daily range): BP systolic 101–159; BP diastolic 65–95
[2021-12-25] MEDS: LEVALBUTEROL HCL SOLN NEBU 1.25 MG/3 ML NEB INH SCH ×6 (02:55→23:50)
[2021-12-25] MEDS: ACETYLCYSTEINE 200 MG/ML 4ML VIAL INH SCH ×2 (06:55→20:10)
[2021-12-25] MEDS: ENOXAPARIN SOD INJ 40 MG/0.4 ML SYR SC SCH ×2 (08:41→21:00)
[2021-12-25] MEDS: METHYLPREDNISOLONE SOD SUCC 40 MG/ML VIAL 1ML IV SCH ×2 (08:41→20:52)
[2021-12-25] MEDS: MONTELUKAST SODIUM 10 MG TAB PO SCH (08:41)
[2021-12-25] MEDS: TIOTROPIUM 18 MCG INH POWDER INH SCH (10:30)
[2021-12-25] MEDS: LEVOFLOXACIN 500MG/D5W 100ML 100 ML IV SCH (11:36)
[2021-12-26] VITALS (15 sets, daily range): BP systolic 105–152; BP diastolic 69–104
[2021-12-26] MEDS: LEVALBUTEROL HCL SOLN NEBU 1.25 MG/3 ML NEB INH SCH ×6 (04:15→23:20)
[2021-12-26 06:50] LABS: BASOPHILS % 0.2 % (0.0-1.0); EOSINOPHILS % 0.1 % (0.0-6.0); HEMATOCRIT 39.9 % (34.2-44.1); HEMOGLOBIN 13.6 g/dL (12.0-16.0); LYMPHOCYTES # (AUTO) 0.9 (1.0-3.2); MEAN CORPUSCULAR HEMOGLOBIN 30.4 pg (28-32); MEAN CORPUSCULAR HGB CONC 34.1 g/dL (31-35); MEAN CORPUSCULAR VOLUME 89.1 fL (81-99); MONOCYTES # (AUTO) 0.9 (0.2-0.8); MONOCYTES % 5.3 % (4.4-11.3); NEUTROPHILS # (AUTO) 15.2 (2.1-6.9); NEUTROPHILS % 85.9 % (38.7-80.0); PLATELET COUNT 341 x10e3/uL (140-360); RED BLOOD COUNT 4.48 x10e6/uL (3.6-5.1); RED CELL DISTRIBUTION WIDTH 13.2 % (11.7-14.4)
[2021-12-26] MEDS: ACETYLCYSTEINE 200 MG/ML 4ML VIAL INH SCH ×2 (06:53→19:56)
[2021-12-26 07:07] LABS: ALBUMIN 3.3 g/dL (3.5-5.0); ALBUMIN/GLOBULIN RATIO 1.4 (0.8-2.0); ANION GAP 15.6 mmol/L (8-16); CALCIUM 8.1 mg/dL (8.4-10.2); CREATININE, SERUM 0.61 mg/dL (0.57-1.11); POTASSIUM 3.6 mmol/L (3.5-5.1)
[2021-12-26] MEDS: METHYLPREDNISOLONE SOD SUCC 40 MG/ML VIAL 1ML IV SCH ×2 (08:17→21:01)
[2021-12-26] MEDS: MONTELUKAST SODIUM 10 MG TAB PO SCH (08:17)
[2021-12-26] MEDS: ENOXAPARIN SOD INJ 40 MG/0.4 ML SYR SC SCH ×2 (08:18→21:01)
[2021-12-26] MEDS: BISACODYL 5 MG TAB EC PO PRN (08:36)
[2021-12-26] MEDS: TIOTROPIUM 18 MCG INH POWDER INH SCH (11:10)
[2021-12-26] MEDS: LEVOFLOXACIN 500MG/D5W 100ML 100 ML IV SCH (12:12)
[2021-12-27] VITALS (17 sets, daily range): BP systolic 113–173; BP diastolic 77–159
[2021-12-27] MEDS: LEVALBUTEROL HCL SOLN NEBU 1.25 MG/3 ML NEB INH SCH ×6 (03:40→23:15)
[2021-12-27] MEDS: TIOTROPIUM 18 MCG INH POWDER INH SCH (06:00)
[2021-12-27 06:49] LABS: BASOPHILS % 0.2 % (0.0-1.0); EOSINOPHILS % 0.1 % (0.0-6.0); HEMATOCRIT 37.1 % (34.2-44.1); HEMOGLOBIN 13.1 g/dL (12.0-16.0); LYMPHOCYTES # (AUTO) 1.2 (1.0-3.2); LYMPHOCYTES % 7.7 % (18.0-39.1); MEAN CORPUSCULAR HEMOGLOBIN 30.4 pg (28-32); MEAN CORPUSCULAR HGB CONC 35.3 g/dL (31-35); MEAN CORPUSCULAR VOLUME 86.1 fL (81-99); MONOCYTES # (AUTO) 0.9 (0.2-0.8); MONOCYTES % 5.7 % (4.4-11.3); NEUTROPHILS # (AUTO) 13.1 (2.1-6.9); NEUTROPHILS % 84.1 % (38.7-80.0); PLATELET COUNT 329 x10e3/uL (140-360); RED BLOOD COUNT 4.31 x10e6/uL (3.6-5.1); RED CELL DISTRIBUTION WIDTH 13.3 % (11.7-14.4)
[2021-12-27 07:42] LABS: ALBUMIN 3.2 g/dL (3.5-5.0); ALBUMIN/GLOBULIN RATIO 1.4 (0.8-2.0); ANION GAP 14.6 mmol/L (8-16); CALCIUM 7.7 mg/dL (8.4-10.2); CREATININE, SERUM 0.55 mg/dL (0.57-1.11); POTASSIUM 3.6 mmol/L (3.5-5.1)
[2021-12-27] MEDS: ACETYLCYSTEINE 200 MG/ML 4ML VIAL INH SCH ×2 (08:15→19:45)
[2021-12-27] MEDS: METHYLPREDNISOLONE SOD SUCC 40 MG/ML VIAL 1ML IV SCH ×2 (08:33→21:12)
[2021-12-27] MEDS: MONTELUKAST SODIUM 10 MG TAB PO SCH (08:33)
[2021-12-27] MEDS: ENOXAPARIN SOD INJ 40 MG/0.4 ML SYR SC SCH ×2 (08:34→21:12)
[2021-12-27] MEDS: BISACODYL 5 MG TAB EC PO PRN (09:43)
[2021-12-27] MEDS: LEVOFLOXACIN 500MG/D5W 100ML 100 ML IV SCH (12:00)
[2021-12-28] VITALS (25 sets, daily range): BP systolic 110–144; BP diastolic 60–110
[2021-12-28] MEDS: LEVALBUTEROL HCL SOLN NEBU 1.25 MG/3 ML NEB INH SCH ×6 (03:05→23:10)
[2021-12-28] MEDS: ACETYLCYSTEINE 200 MG/ML 4ML VIAL INH SCH ×2 (07:00→20:15)
[2021-12-28] MEDS: ENOXAPARIN SOD INJ 40 MG/0.4 ML SYR SC SCH ×2 (08:28→21:01)
[2021-12-28] MEDS: METHYLPREDNISOLONE SOD SUCC 40 MG/ML VIAL 1ML IV SCH ×2 (08:28→21:00)
[2021-12-28] MEDS: MONTELUKAST SODIUM 10 MG TAB PO SCH (08:28)
[2021-12-28] MEDS: TIOTROPIUM 18 MCG INH POWDER INH SCH (11:15)
[2021-12-29] VITALS (21 sets, daily range): BP systolic 100–125; BP diastolic 66–84
[2021-12-29] MEDS: LEVALBUTEROL HCL SOLN NEBU 1.25 MG/3 ML NEB INH SCH ×6 (03:55→23:50)
[2021-12-29] MEDS: TIOTROPIUM 18 MCG INH POWDER INH SCH (06:00)
[2021-12-29] MEDS: ACETYLCYSTEINE 200 MG/ML 4ML VIAL INH SCH ×2 (07:30→19:52)
[2021-12-29] MEDS: METHYLPREDNISOLONE SOD SUCC 40 MG/ML VIAL 1ML IV SCH ×2 (08:13→20:34)
[2021-12-29] MEDS: ENOXAPARIN SOD INJ 40 MG/0.4 ML SYR SC SCH ×2 (08:13→20:35)
[2021-12-29] MEDS: MONTELUKAST SODIUM 10 MG TAB PO SCH (08:13)
[2021-12-29] MEDS: BISACODYL 5 MG TAB EC PO PRN (13:26)
[2021-12-30] VITALS (10 sets, daily range): BP systolic 101–135; BP diastolic 64–92
[2021-12-30] MEDS: LEVALBUTEROL HCL SOLN NEBU 1.25 MG/3 ML NEB INH SCH ×4 (03:43→14:42)
[2021-12-30 05:06] LABS: BASOPHILS % 0.2 % (0.0-1.0); HEMATOCRIT 38.5 % (34.2-44.1); HEMOGLOBIN 13.3 g/dL (12.0-16.0); LYMPHOCYTES # (AUTO) 1.1 (1.0-3.2); LYMPHOCYTES % 5.8 % (18.0-39.1); MEAN CORPUSCULAR HEMOGLOBIN 31.1 pg (28-32); MEAN CORPUSCULAR HGB CONC 34.5 g/dL (31-35); MONOCYTES # (AUTO) 0.4 (0.2-0.8); NEUTROPHILS # (AUTO) 16.5 (2.1-6.9); NEUTROPHILS % 90.7 % (38.7-80.0); PLATELET COUNT 351 x10e3/uL (140-360); RED BLOOD COUNT 4.28 x10e6/uL (3.6-5.1); RED CELL DISTRIBUTION WIDTH 13.5 % (11.7-14.4)
[2021-12-30] MEDS: TIOTROPIUM 18 MCG INH POWDER INH SCH (05:24)
[2021-12-30 05:26] LABS: ALBUMIN 3.5 g/dL (3.5-5.0); ALBUMIN/GLOBULIN RATIO 1.5 (0.8-2.0); ANION GAP 16.5 mmol/L (8-16); CALCIUM 9.3 mg/dL (8.4-10.2); CREATININE, SERUM 0.61 mg/dL (0.57-1.11); POTASSIUM 3.5 mmol/L (3.5-5.1)
[2021-12-30 05:40] LABS: MAGNESIUM 2.4 MG/DL (1.3-2.1)
[2021-12-30] MEDS: ACETYLCYSTEINE 200 MG/ML 4ML VIAL INH SCH (07:03)
[2021-12-30] MEDS: ENOXAPARIN SOD INJ 40 MG/0.4 ML SYR SC SCH (08:36)
[2021-12-30] MEDS: METHYLPREDNISOLONE SOD SUCC 40 MG/ML VIAL 1ML IV SCH (08:36)
[2021-12-30] MEDS: MONTELUKAST SODIUM 10 MG TAB PO SCH (08:37)
[2021-12-30] MEDS ORDERED: LINEZOLID 600 MG/D5W 300ML 300 ML IV SCH (13:30)
== END 2021-12-30 17:32 | DRG 871 ==
LOC: ER 08:45 → ERHOLD 12:14 → ICU 17:37 → OBSVTOIN 12-18 09:47
PROVIDERS: ADMIT Internal Medicine; ATTEND Internal Medicine
PROC: 5A09357 Assistance with Respiratory Ventilation, Less than 24 Consecutive Hours, Continuous Positive Airway Pressure (ICD-10-PCS; 2021-12-17)
PROC: 8E0ZXY6 Isolation (ICD-10-PCS; principal; 2021-12-18)
PROC: XW043E5 Introduction of Remdesivir Anti-infective into Central Vein, Percutaneous Approach, New Technology Group 5 (ICD-10-PCS; 2021-12-18)
PROC: 02HV33Z Insertion of Infusion Device into Superior Vena Cava, Percutaneous Approach (ICD-10-PCS; 2021-12-18)
PROC: 3E04329 Introduction of Other Anti-infective into Central Vein, Percutaneous Approach (ICD-10-PCS; 2021-12-18)
PROC: 3E04328 Introduction of Oxazolidinones into Central Vein, Percutaneous Approach (ICD-10-PCS; 2021-12-30)
DX: A41.89 Other specified sepsis (principal); J12.82 Pneumonia due to coronavirus disease 2019; U07.1 COVID-19; J96.21 Acute and chronic respiratory failure with hypoxia; J15.9 Unspecified bacterial pneumonia; J44.1 Chronic obstructive pulmonary disease with (acute) exacerbation; E44.0 Moderate protein-calorie malnutrition; Z68.1 Body mass index [BMI] 19.9 or less, adult; D80.2 Selective deficiency of immunoglobulin A [IgA]; R91.1 Solitary pulmonary nodule; Z99.81 Dependence on supplemental oxygen; Z88.8 Allergy status to other drugs, medicaments and biological substances; Z82.49 Family history of ischemic heart disease and other diseases of the circulatory system; E87.6 Hypokalemia; F41.9 Anxiety disorder, unspecified
CPT/HCPCS: 36415; 36569; 71045; 71260; 80053; 81001; 83605; 83735; 84702; 85025; 85610; 85730; 87040; 93005; 94640; 94660; 94668; 94669; 94799; 99251; 99284; G0378; J0248; J1650; J1956; J2020; J2543; J2920; J2930; J3480; J7030; J7050; Q9967